=== PATIENT | female | born 2000 | race African-American/Black ===

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

== ENCOUNTER 2019-05-14 10:25 | Emergency (ER) | payer OTHER ==
[~2019-05-14] VITALS: Ht 144.8 cm; Wt 109.5 kg
[~2019-05-14 10:25] MED LIST changes: +LAMICTAL100 MG PO
[2019-05-14 11:11] LABS: URINE BILIRUBIN - DIPSTICK NEGATIVE (NEGATIVE); URINE BLOOD DIPSTICK TRACE-INTACT (NEGATIVE); URINE COLOR YELLOW; URINE GLUCOSE - DIPSTICK NEGATIVE (NEGATIVE); URINE KETONE NEGATIVE (NEGATIVE); URINE LEUK ESTERASE NEGATIVE (NEGATIVE); URINE NITRITE - DIPSTICK NEGATIVE (Negative); URINE PROTEIN - DIPSTICK NEGATIVE (NEG-TRACE); URINE UROBILINOGEN - DIPSTICK 0.2 E.U./dL (0.2)
[2019-05-14 11:34] LABS: HEMATOCRIT 37.9 % (37.0-47.0); HEMOGLOBIN 11.8 g/dl (12.0-16.0); IMMATURE GRANULOCYTES 0.3 % (0.0-5.0); MEAN CELL VOLUME 81.7 fL CALC (80.0-100.0); MEAN CORPUSCULAR HGB 25.4 pG CALC (26.0-32.0); MEAN CORPUSCULAR HGB CONC 31.1 g/L CALC (32.0-36.0); NEUT# 5.97 thou/uL (2.00-7.15); RED BLOOD COUNT 4.64 mill/uL (4.20-5.60); RED CELL DISTRI WIDTH 16.5 % (11.5-15.5)
[2019-05-14 12:00] LABS: ALBUMIN 4.1 g/dL (3.2-5.0); ALKALINE PHOSPHATASE 116 u/l (38-126); ANION GAP 14 (6-22 (CALC)); BILIRUBIN, TOTAL 0.4 mg/dL (0.0-1.4); BUN 14 mg/dL (7-17); BUN/CREATININE RATIO 22 (12-20 (CALC)); CARBON DIOXIDE 26 mmol/l (22-30); CHLORIDE 107 mmol/l (95-108); CREATININE 0.6 mg/dL (0.5-1.0); GFR > 60 ML/MIN (>=60 (CALC)); GFR FOR AFR.AMER. > 60 ML/MIN (>=60 (CALC)); POTASSIUM 4.2 mmol/l (3.5-5.1); SGOT/AST 21 u/l (14-36); SODIUM 143 mmol/l (137-146); TOTAL PROTEIN 7.7 g/dL (6.3-8.2)
[2019-05-14] MEDS ORDERED: AMOXICILLIN500 MG PO (12:20)
[2019-05-14 12:29] VITALS: BP 139/85
== END 2019-05-14 12:29 | disposition home or self-care (01) ==
LOC: ED 10:25
PROVIDERS: Emergency Medicine
DX: J02.0 Streptococcal pharyngitis (principal); E11.9 Type 2 diabetes mellitus without complications; R62.50 Unspecified lack of expected normal physiological development in childhood; R07.9 Chest pain, unspecified

== ENCOUNTER 2019-06-15 18:53 | Emergency (ER) | payer OTHER ==
[~2019-06-15] VITALS: Ht 144.8 cm; Wt 110.0 kg
[2019-06-15] MEDS ORDERED: RANITIDINE HCL150 MG PO (19:54)
[2019-06-15] MEDS ORDERED: BACITRACIN3.5 GM OS (20:16)
[2019-06-15 20:30] VITALS: BP 136/68
[2019-06-15] MEDS ORDERED: ERYTHROMYCIN O3.5 GM OS (20:44)
== END 2019-06-15 20:30 | disposition home or self-care (01) ==
LOC: ED 18:53
DX: H00.014 Hordeolum externum left upper eyelid (principal); E11.9 Type 2 diabetes mellitus without complications; R62.50 Unspecified lack of expected normal physiological development in childhood; Z79.84 Long term (current) use of oral hypoglycemic drugs

== ENCOUNTER 2019-08-17 09:02 | Emergency (ER) | payer OTHER ==
[~2019-08-17] VITALS: Ht 144.8 cm; Wt 135.0 kg
[~2019-08-17 09:02] MED LIST changes: +BACITRACIN3.5 GM OS; +ERYTHROMYCIN O3.5 GM OS; +RANITIDINE HCL150 MG PO
[2019-08-17 10:21] VITALS: BP 137/79
== END 2019-08-17 10:21 | disposition home or self-care (01) ==
LOC: ED 09:02
DX: S29.012A Strain of muscle and tendon of back wall of thorax, initial encounter (principal); R07.89 Other chest pain; X50.9XXA Other and unspecified overexertion or strenuous movements or postures, initial encounter; R62.50 Unspecified lack of expected normal physiological development in childhood; E11.9 Type 2 diabetes mellitus without complications; Z79.84 Long term (current) use of oral hypoglycemic drugs; Z79.899 Other long term (current) drug therapy; M25.512 Pain in left shoulder

== ENCOUNTER 2019-10-16 | Emergency (ER) | payer OTHER ==
[2019-10-16 18:34] LABS: HEMATOCRIT 39.4 % (37.0-47.0); HEMOGLOBIN 12.3 g/dl (12.0-16.0); IMMATURE GRANULOCYTES 0.3 % (0.0-5.0); MEAN CELL VOLUME 81.6 fL CALC (80.0-100.0); MEAN CORPUSCULAR HGB 25.5 pG CALC (26.0-32.0); MEAN CORPUSCULAR HGB CONC 31.2 g/L CALC (32.0-36.0); NEUT# 5.82 thou/uL (2.00-7.15); RED BLOOD COUNT 4.83 mill/uL (4.20-5.60); RED CELL DISTRI WIDTH 17.2 % (11.5-15.5)
[2019-10-16 18:37] LABS: URINE BILIRUBIN - DIPSTICK NEGATIVE (NEGATIVE); URINE BLOOD DIPSTICK NEGATIVE (NEGATIVE); URINE COLOR YELLOW; URINE GLUCOSE - DIPSTICK NEGATIVE (NEGATIVE); URINE KETONE NEGATIVE (NEGATIVE); URINE LEUK ESTERASE NEGATIVE (NEGATIVE); URINE NITRITE - DIPSTICK NEGATIVE (Negative); URINE PROTEIN - DIPSTICK NEGATIVE (NEG-TRACE); URINE SPECIFIC GRAVITY 1.015
[2019-10-16 18:46] LABS: ALBUMIN 4.2 g/dL (3.2-5.0); ALKALINE PHOSPHATASE 122 u/l (38-126); AMYLASE 74 u/l (30-110); ANION GAP 11 (6-22 (CALC)); BILIRUBIN, TOTAL 0.3 mg/dL (0.0-1.4); BUN 11 mg/dL (7-17); BUN/CREATININE RATIO 18 (12-20 (CALC)); CARBON DIOXIDE 28 mmol/l (22-30); CHLORIDE 104 mmol/l (95-108); CREATININE 0.6 mg/dL (0.5-1.0); GFR > 60 ML/MIN (>=60 (CALC)); GFR FOR AFR.AMER. > 60 ML/MIN (>=60 (CALC)); POTASSIUM 3.4 mmol/l (3.5-5.1); SGOT/AST 22 u/l (14-36); SODIUM 141 mmol/l (137-146); TOTAL PROTEIN 7.9 g/dL (6.3-8.2)
[2019-10-16] MEDS ORDERED: CEPHALEXIN500 M1 PO (18:54)
[2019-10-16] MEDS ORDERED: ONDANSETRON4 MG PO (18:54)
== END 2019-10-16 19:20 | disposition home or self-care (01) ==
PROVIDERS: Emergency Medicine
DX: B34.9 Viral infection, unspecified (principal); S00.421A Blister (nonthermal) of right ear, initial encounter; L08.9 Local infection of the skin and subcutaneous tissue, unspecified; E11.9 Type 2 diabetes mellitus without complications; R62.50 Unspecified lack of expected normal physiological development in childhood; X58.XXXA Exposure to other specified factors, initial encounter; Z79.84 Long term (current) use of oral hypoglycemic drugs

== ENCOUNTER 2020-08-11 10:56 | Emergency (ER) | payer OTHER ==
[~2020-08-11] VITALS: Ht 144.8 cm; Wt 105.6 kg
[~2020-08-11 10:56] MED LIST changes: +CEPHALEXIN500 M1 PO; +ONDANSETRON4 MG PO
[2020-08-11 11:44] LABS: URINE BILIRUBIN - DIPSTICK NEGATIVE (NEGATIVE); URINE BLOOD DIPSTICK TRACE-LYSED (NEGATIVE); URINE COLOR YELLOW; URINE GLUCOSE - DIPSTICK NEGATIVE (NEGATIVE); URINE KETONE NEGATIVE (NEGATIVE); URINE LEUK ESTERASE NEGATIVE (NEGATIVE); URINE NITRITE - DIPSTICK NEGATIVE (Negative); URINE PROTEIN - DIPSTICK NEGATIVE (NEG-TRACE); URINE SPECIFIC GRAVITY 1.015; URINE UROBILINOGEN - DIPSTICK 0.2 E.U./dL (0.2)
[2020-08-11 13:08] LABS: HEMATOCRIT 42.1 % (37.0-47.0); IMMATURE GRANULOCYTES 0.1 % (0.0-5.0); MEAN CELL VOLUME 82.2 fL CALC (80.0-100.0); MEAN CORPUSCULAR HGB 25.4 pG CALC (26.0-32.0); MEAN CORPUSCULAR HGB CONC 30.9 g/dL CAL (32.0-36.0); NEUT# 4.02 thou/uL (2.00-7.15); RED BLOOD COUNT 5.12 mill/uL (4.20-5.60); RED CELL DISTRI WIDTH 15.9 % (11.5-15.5)
[2020-08-11 13:22] LABS: ALBUMIN 4.2 g/dL (3.2-5.0); ANION GAP 11 (6-22 (CALC)); BILIRUBIN, TOTAL 0.3 mg/dL (0.0-1.4); BUN 13 mg/dL (7-17); BUN/CREATININE RATIO 17 (12-20 (CALC)); CARBON DIOXIDE 27 mmol/l (22-30); CHLORIDE 106 mmol/l (95-108); CREATININE 0.7 mg/dL (0.5-1.0); GFR > 60 ML/MIN (>=60 (CALC)); GFR FOR AFR.AMER. > 60 ML/MIN (>=60 (CALC)); LIPASE 94 u/l (23-300); POTASSIUM 3.9 mmol/l (3.5-5.1); SGOT/AST 21 u/l (14-36); SODIUM 141 mmol/l (137-146); TOTAL PROTEIN 7.9 g/dL (6.3-8.2)
[2020-08-11 13:27] LABS: ALKALINE PHOSPHATASE 136 u/l (38-126)
[2020-08-11 14:20] VITALS: BP 131/60
== END 2020-08-11 14:20 | disposition home or self-care (01) ==
LOC: ED 10:56
PROVIDERS: Family Medicine
DX: R10.13 Epigastric pain (principal); E11.9 Type 2 diabetes mellitus without complications; Z79.84 Long term (current) use of oral hypoglycemic drugs; R62.50 Unspecified lack of expected normal physiological development in childhood
CPT/HCPCS: Q9967

== ENCOUNTER 2020-09-28 18:52 | Emergency (ER) | payer OTHER ==
[~2020-09-28] VITALS: Ht 144.8 cm; Wt 108.0 kg
[2020-09-28 19:42] LABS: HEMOGLOBIN 12.3 g/dl (12.0-16.0); IMMATURE GRANULOCYTES 0.2 % (0.0-5.0); MEAN CELL VOLUME 82.6 fL CALC (80.0-100.0); MEAN CORPUSCULAR HGB 26.1 pG CALC (26.0-32.0); MEAN CORPUSCULAR HGB CONC 31.5 g/dL CAL (32.0-36.0); NEUT# 6.67 thou/uL (2.00-7.15); RED BLOOD COUNT 4.72 mill/uL (4.20-5.60); RED CELL DISTRI WIDTH 15.9 % (11.5-15.5)
[2020-09-28 20:17] VITALS: BP 141/89
== END 2020-09-28 20:17 | disposition home or self-care (01) ==
LOC: ED 18:52
PROVIDERS: Family Medicine
DX: B34.9 Viral infection, unspecified (principal); E11.9 Type 2 diabetes mellitus without complications; R62.50 Unspecified lack of expected normal physiological development in childhood; Z79.84 Long term (current) use of oral hypoglycemic drugs; Z20.828 Contact with and (suspected) exposure to other viral communicable diseases

== ENCOUNTER 2020-11-02 16:16 | Emergency (ER) | payer OTHER ==
[~2020-11-02] VITALS: Ht 144.8 cm; Wt 115.0 kg
[2020-11-02 18:28] LABS: URINE BILIRUBIN - DIPSTICK NEGATIVE (NEGATIVE); URINE BLOOD DIPSTICK NEGATIVE (NEGATIVE); URINE COLOR YELLOW; URINE GLUCOSE - DIPSTICK NEGATIVE (NEGATIVE); URINE KETONE TRACE mg/dL (NEGATIVE); URINE LEUK ESTERASE NEGATIVE (NEGATIVE); URINE NITRITE - DIPSTICK NEGATIVE (Negative); URINE PROTEIN - DIPSTICK NEGATIVE (NEG-TRACE); URINE SPECIFIC GRAVITY 1.025; URINE UROBILINOGEN - DIPSTICK 0.2 E.U./dL (0.2)
[2020-11-02 20:30] VITALS: BP 133/94
== END 2020-11-02 20:30 | disposition home or self-care (01) ==
LOC: ED 16:16
DX: B34.9 Viral infection, unspecified (principal); R51.9 Headache, unspecified; E11.9 Type 2 diabetes mellitus without complications; R62.50 Unspecified lack of expected normal physiological development in childhood; Z79.84 Long term (current) use of oral hypoglycemic drugs; Z20.822 Contact with and (suspected) exposure to COVID-19

== ENCOUNTER 2020-12-14 07:36 | Emergency (ER) | payer OTHER ==
[~2020-12-14] VITALS: Ht 144.8 cm; Wt 116.0 kg
[2020-12-14] MEDS ORDERED: CLARITIN10 M1 PO (08:47)
[2020-12-14] MEDS ORDERED: AMOXICILLIN500 MG PO (08:47)
[2020-12-14 08:54] VITALS: BP 139/93
== END 2020-12-14 08:58 | disposition home or self-care (01) ==
LOC: ED 07:36
DX: J02.9 Acute pharyngitis, unspecified (principal); E11.9 Type 2 diabetes mellitus without complications; R62.50 Unspecified lack of expected normal physiological development in childhood; Z79.84 Long term (current) use of oral hypoglycemic drugs; Z20.822 Contact with and (suspected) exposure to COVID-19

== ENCOUNTER 2021-01-26 20:13 | Emergency (ER) | payer OTHER ==
[~2021-01-26 20:13] MED LIST changes: +CLARITIN10 M1 PO
[2021-01-26 21:28] LABS: ALBUMIN 4.2 g/dL (3.2-5.0); ALKALINE PHOSPHATASE 109 u/l (38-126); ANION GAP 11 (6-22 (CALC)); BILIRUBIN, TOTAL 0.5 mg/dL (0.0-1.4); BUN 11 mg/dL (7-17); BUN/CREATININE RATIO 15 (12-20 (CALC)); CARBON DIOXIDE 28 mmol/l (22-30); CHLORIDE 103 mmol/l (95-108); CREATININE 0.7 mg/dL (0.5-1.0); GFR > 60 ML/MIN (>=60 (CALC)); GFR FOR AFR.AMER. > 60 ML/MIN (>=60 (CALC)); POTASSIUM 3.7 mmol/l (3.5-5.1); PROTHROMBIN TIME 10.4 SECONDS (9.0-12.5); SGOT/AST 24 u/l (14-36); SODIUM 139 mmol/l (137-146); TOTAL PROTEIN 7.7 g/dL (6.3-8.2)
[2021-01-26 21:32] LABS: HEMATOCRIT 38.7 % (37.0-47.0); HEMOGLOBIN 12.3 g/dl (12.0-16.0); IMMATURE GRANULOCYTES 0.3 % (0.0-5.0); MEAN CELL VOLUME 81.5 fL CALC (80.0-100.0); MEAN CORPUSCULAR HGB 25.9 pG CALC (26.0-32.0); MEAN CORPUSCULAR HGB CONC 31.8 g/dL CAL (32.0-36.0); NEUT# 6.2 thou/uL (2.00-7.15); RED BLOOD COUNT 4.75 mill/uL (4.20-5.60); RED CELL DISTRI WIDTH 15.4 % (11.5-15.5)
[2021-01-26] MEDS ORDERED: CODEINE/GUAIFEN1 SOL PO (23:29)
[2021-01-26 23:43] VITALS: BP 127/81
== END 2021-01-26 23:53 | disposition home or self-care (01) ==
LOC: ED 20:13
PROVIDERS: Emergency Medicine
DX: J40 Bronchitis, not specified as acute or chronic (principal); E11.9 Type 2 diabetes mellitus without complications; R62.50 Unspecified lack of expected normal physiological development in childhood; Z79.84 Long term (current) use of oral hypoglycemic drugs
CPT/HCPCS: Q9967

== ENCOUNTER 2021-03-06 16:16 | Emergency (ER) | payer OTHER ==
[~2021-03-06] VITALS: Ht 144.8 cm; Wt 111.8 kg
[~2021-03-06 16:16] MED LIST changes: +CODEINE/GUAIFEN1 SOL PO
[2021-03-06] MEDS ORDERED: AMOXICILLIN875 MG PO (16:32)
[2021-03-06 17:46] VITALS: BP 146/86
== END 2021-03-06 17:46 | disposition home or self-care (01) ==
LOC: ED 16:16
DX: H66.93 Otitis media, unspecified, bilateral (principal); E11.9 Type 2 diabetes mellitus without complications; I10 Essential (primary) hypertension; R62.50 Unspecified lack of expected normal physiological development in childhood; Z79.84 Long term (current) use of oral hypoglycemic drugs; Z20.822 Contact with and (suspected) exposure to COVID-19

== ENCOUNTER 2021-04-26 18:43 | Emergency (ER) | payer OTHER ==
[~2021-04-26] VITALS: Ht 144.8 cm; Wt 114.0 kg
[2021-04-26 21:09] VITALS: BP 149/95
== END 2021-04-26 21:21 | disposition home or self-care (01) ==
LOC: ED 18:43
DX: O26.891 Other specified pregnancy related conditions, first trimester (principal); R51.9 Headache, unspecified; O16.1 Unspecified maternal hypertension, first trimester; O24.911 Unspecified diabetes mellitus in pregnancy, first trimester; Z3A.08 8 weeks gestation of pregnancy; Z79.84 Long term (current) use of oral hypoglycemic drugs

== ENCOUNTER 2021-05-25 10:07 | Emergency (ER) | payer OTHER ==
[2021-05-25 13:24] VITALS: BP 115/63
== END 2021-05-25 13:24 | disposition home or self-care (01) ==
LOC: ED 10:07
DX: B34.9 Viral infection, unspecified (principal); I10 Essential (primary) hypertension; E11.9 Type 2 diabetes mellitus without complications; R62.50 Unspecified lack of expected normal physiological development in childhood; Z79.84 Long term (current) use of oral hypoglycemic drugs; Z20.822 Contact with and (suspected) exposure to COVID-19

== ENCOUNTER 2021-07-02 19:21 | Emergency (ER) | payer OTHER ==
[~2021-07-02] VITALS: Ht 144.8 cm; Wt 116.0 kg
[2021-07-02 20:19] LABS: HEMATOCRIT 39.1 % (37.0-47.0); HEMOGLOBIN 12.4 g/dl (12.0-16.0); IMMATURE GRANULOCYTES 0.1 % (0.0-5.0); MEAN CELL VOLUME 82.7 fL CALC (80.0-100.0); MEAN CORPUSCULAR HGB 26.2 pG CALC (26.0-32.0); MEAN CORPUSCULAR HGB CONC 31.7 g/dL CAL (32.0-36.0); NEUT# 6.46 thou/uL (2.00-7.15); RED BLOOD COUNT 4.73 mill/uL (4.20-5.60); RED CELL DISTRI WIDTH 15.9 % (11.5-15.5)
[2021-07-02 20:22] LABS: HCG SERUM/URINE (NEG/POS) NEGATIVE (NEGATIVE)
[2021-07-02 20:25] LABS: URINE BLOOD DIPSTICK NEGATIVE (NEGATIVE); URINE COLOR YELLOW; URINE GLUCOSE - DIPSTICK NEGATIVE (NEGATIVE); URINE KETONE 15 mg/dL (NEGATIVE); URINE PH 6.5 (4.5-8.0); URINE PROTEIN - DIPSTICK 30 mg/dL (NEG-TRACE); URINE SPECIFIC GRAVITY 1.025
[2021-07-02 20:28] LABS: URINE BILIRUBIN - DIPSTICK SMALL (NEGATIVE); URINE LEUK ESTERASE MODERATE (NEGATIVE); URINE NITRITE - DIPSTICK NEGATIVE (Negative)
[2021-07-02 20:37] LABS: URINE SQUAMOUS EPITHELIAL CELL FEW EPI/hpf (0-FEW)
[2021-07-02 20:41] LABS: ALBUMIN 4.2 g/dL (3.2-5.0); ALKALINE PHOSPHATASE 78 u/l (38-126); AMYLASE 104 u/l (30-110); ANION GAP 9 (6-22 (CALC)); BILIRUBIN, TOTAL 0.5 mg/dL (0.0-1.4); BUN 16 mg/dL (7-17); BUN/CREATININE RATIO 17 (12-20 (CALC)); CARBON DIOXIDE 30 mmol/l (22-30); CHLORIDE 104 mmol/l (95-108); CREATININE 0.9 mg/dL (0.5-1.0); ETHYL ALCOHOL 0 mg/dl (0-30); GFR > 60 ML/MIN (>=60 (CALC)); GFR FOR AFR.AMER. > 60 ML/MIN (>=60 (CALC)); LIPASE 110 u/l (23-300); POTASSIUM 3.6 mmol/l (3.5-5.1); SGOT/AST 27 u/l (14-36); SODIUM 139 mmol/l (137-146); TOTAL PROTEIN 7.9 g/dL (6.3-8.2)
[2021-07-02] MEDS ORDERED: CLONIDINE0.1 MG PO (21:09)
[2021-07-02] MEDS ORDERED: LAMICTAL25 M2 PO (21:10)
[2021-07-02 23:28] VITALS: BP 124/70
[2021-07-02] MEDS ORDERED: ZOFRAN4 MG/TAB PO (23:49)
[2021-07-02] MEDS ORDERED: PROTONIX40 MG PO (23:49)
[2021-07-02] MEDS ORDERED: BACTRIM DS1 TAB PO (23:49)
== END 2021-07-03 | disposition home or self-care (01) ==
LOC: ED 19:21
DX: R10.13 Epigastric pain (principal); R11.0 Nausea; N39.0 Urinary tract infection, site not specified; E11.9 Type 2 diabetes mellitus without complications; I10 Essential (primary) hypertension; R62.50 Unspecified lack of expected normal physiological development in childhood; Z79.84 Long term (current) use of oral hypoglycemic drugs; Z20.822 Contact with and (suspected) exposure to COVID-19

== ENCOUNTER 2021-07-21 19:37 | Emergency (ER) | payer OTHER ==
[~2021-07-21] VITALS: Ht 144.8 cm; Wt 116.0 kg
[~2021-07-21 19:37] MED LIST changes: +CLONIDINE0.1 MG PO; +LAMICTAL25 M2 PO; +PROTONIX40 MG PO
[2021-07-21 20:02] LABS: HEMOGLOBIN 12.3 g/dl (12.0-16.0); IMMATURE GRANULOCYTES 0.1 % (0.0-5.0); MEAN CORPUSCULAR HGB 26.2 pG CALC (26.0-32.0); MEAN CORPUSCULAR HGB CONC 31.5 g/dL CAL (32.0-36.0); NEUT# 4.13 thou/uL (2.00-7.15); RED BLOOD COUNT 4.7 mill/uL (4.20-5.60); RED CELL DISTRI WIDTH 16.7 % (11.5-15.5)
[2021-07-21 20:05] LABS: URINE BILIRUBIN - DIPSTICK NEGATIVE (NEGATIVE); URINE BLOOD DIPSTICK TRACE-INTACT (NEGATIVE); URINE COLOR YELLOW; URINE GLUCOSE - DIPSTICK NEGATIVE (NEGATIVE); URINE KETONE TRACE mg/dL (NEGATIVE); URINE PH 6.5 (4.5-8.0); URINE PROTEIN - DIPSTICK NEGATIVE (NEG-TRACE); URINE SPECIFIC GRAVITY 1.025; URINE UROBILINOGEN - DIPSTICK 0.2 E.U./dL (0.2)
[2021-07-21 20:06] LABS: URINE LEUK ESTERASE SMALL (NEGATIVE); URINE NITRITE - DIPSTICK NEGATIVE (Negative)
[2021-07-21 20:13] LABS: ALKALINE PHOSPHATASE 66 u/l (38-126); AMYLASE 78 u/l (30-110); BILIRUBIN, TOTAL 0.7 mg/dL (0.0-1.4); BUN 12 mg/dL (7-17); BUN/CREATININE RATIO 16 (12-20 (CALC)); CARBON DIOXIDE 25 mmol/l (22-30); CHLORIDE 107 mmol/l (95-108); CREATININE 0.8 mg/dL (0.5-1.0); GFR > 60 ML/MIN (>=60 (CALC)); GFR FOR AFR.AMER. > 60 ML/MIN (>=60 (CALC)); LIPASE 113 u/l (23-300); SGOT/AST 33 u/l (14-36); SODIUM 140 mmol/l (137-146); TOTAL PROTEIN 7.7 g/dL (6.3-8.2)
[2021-07-21 20:14] LABS: ANION GAP 12 (6-22 (CALC)); POTASSIUM 4.4 mmol/l (3.5-5.1)
[2021-07-21 20:18] LABS: URINE BACTERIA FEW hpf; URINE SQUAMOUS EPITHELIAL CELL MANY EPI/hpf (0-FEW)
[2021-07-21] MEDS ORDERED: PROMETHAZINE HY25 M1 PO (22:11)
[2021-07-21 22:23] VITALS: BP 135/84
== END 2021-07-21 22:25 | disposition home or self-care (01) ==
LOC: ED 19:37
PROVIDERS: Family Medicine
DX: A08.4 Viral intestinal infection, unspecified (principal); I10 Essential (primary) hypertension; E11.9 Type 2 diabetes mellitus without complications; R62.50 Unspecified lack of expected normal physiological development in childhood; Z20.822 Contact with and (suspected) exposure to COVID-19
CPT/HCPCS: Q9967

== ENCOUNTER 2021-08-10 11:56 | Observation (INO) | payer OTHER ==
[~2021-08-10] VITALS: Ht 144.8 cm; Wt 107.0 kg
[~2021-08-10 11:56] MED LIST changes: +PROMETHAZINE HY25 M1 PO
--- NOTE | 2021-08-10 11:56 | NUR ---
PT TO ED ROOM 13 VIA EMS STRETCHER IN STABLE CONDITION.
--- NOTE | 2021-08-10 12:12 | NUR ---
PT BACK TO ROOM FROM BATHROOM, UNABLE TO VOID AT THIS TIME, BUT STATES SHE FEELS LIKE SHE NEEDS TO. PT REPORT LAST VOID LAST NIGHT.
[2021-08-10 12:37] LABS: HEMATOCRIT 37.5 % (37.0-47.0); HEMOGLOBIN 11.8 g/dl (12.0-16.0); MEAN CELL VOLUME 84.7 fL CALC (80.0-100.0); MEAN CORPUSCULAR HGB 26.6 pG CALC (26.0-32.0); MEAN CORPUSCULAR HGB CONC 31.5 g/dL CAL (32.0-36.0); NEUT# 2.39 thou/uL (2.00-7.15); RED BLOOD COUNT 4.43 mill/uL (4.20-5.60); RED CELL DISTRI WIDTH 16.8 % (11.5-15.5)
--- NOTE | 2021-08-10 13:33 | NUR ---
PT TO ED BATHROOM AMBULATORY TO PROVIDE URINE SAMPLE. COLLECTED AND TO LAB.
[2021-08-10 13:36] LABS: ALBUMIN 3.9 g/dL (3.2-5.0); ALKALINE PHOSPHATASE 87 u/l (38-126); AMYLASE 68 u/l (30-110); ANION GAP 11 (6-22 (CALC)); BILIRUBIN, TOTAL 0.6 mg/dL (0.0-1.4); BUN 9 mg/dL (7-17); BUN/CREATININE RATIO 11 (12-20 (CALC)); CARBON DIOXIDE 27 mmol/l (22-30); CHLORIDE 105 mmol/l (95-108); CREATININE 0.8 mg/dL (0.5-1.0); GFR > 60 ML/MIN (>=60 (CALC)); GFR FOR AFR.AMER. > 60 ML/MIN (>=60 (CALC)); LIPASE 76 u/l (23-300); POTASSIUM 3.9 mmol/l (3.5-5.1); SGOT/AST 24 u/l (14-36); SODIUM 139 mmol/l (137-146); TOTAL PROTEIN 7.2 g/dL (6.3-8.2)
--- NOTE | 2021-08-10 14:33 | NUR ---
PT RESTING ON ED BED. CALL LIGHT IN REACH, PT STABLE. WILL CONTINUE TO MONITOR.
[2021-08-10 14:46] LABS: URINE BILIRUBIN - DIPSTICK NEGATIVE (NEGATIVE); URINE BLOOD DIPSTICK NEGATIVE (NEGATIVE); URINE COLOR YELLOW; URINE GLUCOSE - DIPSTICK NEGATIVE (NEGATIVE); URINE KETONE NEGATIVE (NEGATIVE); URINE PROTEIN - DIPSTICK NEGATIVE (NEG-TRACE); URINE SPECIFIC GRAVITY 1.015; URINE UROBILINOGEN - DIPSTICK 0.2 E.U./dL (0.2)
[2021-08-10 14:49] LABS: URINE LEUK ESTERASE SMALL (NEGATIVE); URINE NITRITE - DIPSTICK NEGATIVE (Negative)
[2021-08-10 14:59] LABS: URINE WBC 0-2 WBC/hpf (0-5)
[2021-08-10 15:00] LABS: URINE SQUAMOUS EPITHELIAL CELL FEW EPI/hpf (0-FEW)
--- NOTE | 2021-08-10 15:08 | NUR ---
PT UPDATED ON POC, AMBULATED TO ED BATHROOM WITH STEADY GAIT.PT STABLE.
--- NOTE | 2021-08-10 15:28 | NUR ---
spoke with clive from the or states pt is schedule for surgery sat 10am. Relates NPO after midnight.
--- NOTE | 2021-08-10 16:20 | NUR ---
PT RESTING COMFORTABLY, NO NEEDS AT THIS TIME
--- NOTE | 2021-08-10 17:18 | NUR ---
PT AMBULATED TO ED BATHROOM WITH STEADY GAIT. PT STABLE.
--- NOTE | 2021-08-10 18:15 | NUR ---
PT RESTING ON ED BED, TALKING ON PHONE. PT STABLE.
--- NOTE | 2021-08-10 18:45 | NUR ---
PT REPORTS PAIN COMES AND GOES AND RATES AT 7/10. PT AWARE OF ADMISSION AND GOING TO MED\SURG SOON. PT STABLE.
--- NOTE | 2021-08-10 18:48 | NUR ---
CALL PLACED TO MED/SURG TO GIVE REPORT, UNABLE TO TAKE REPORT AT THIS TIME. RN WILL CALL BACK WHEN AVAILABLE.
--- NOTE | 2021-08-10 19:01 | NUR ---
SBAR REPORT GIVEN TO BELLE, PT TO GO TO ROOM 263, WILL BRING TO FLOOR IN ABOUT AN HOUR.
--- NOTE | 2021-08-10 19:34 | NUR ---
PT AMBULATED TO ED BATHROOM WITH STEADY GAIT. PT STATES PAIN "COMES AND GOES". PT'S VSS. PT AWARE OF TIME OF TRANSFER TO MED/SURG. PT STABLE.
--- NOTE | 2021-08-10 19:58 | NUR ---
CALL PLACED TO MED/SURG. OK TO BRING PT. PT TAKEN BY ED DEON IN STABLE CONDITION. ALL BELONGINGS AND PAPERWORK TAKEN.
[2021-08-10 20:04] VITALS: BP 155/104
--- NOTE | 2021-08-10 20:04 | NUR ---
PT ARRIVED TO [facility] VIA STRETCHER ACCOMPANIED BY ER NURSE. ORIENTED PT TO ROOM AND CALL LIGHT, VERBALIZED UNDERSTANDING. PT BROUGHT IN MEDS FROM HOME, DISCUSSED SENDING MEDS TO PHARMACY, PT AGREES. MEDS SEALED IN BAG IN FRONT OF PT, BAG NUMBER [id number]. DISCUSSED POC AND PROVIDED PT WITH PRE AND POST OP EDUCATIONS AND EXPECTATIONS. INFORMED CONSENT OBTAINED. DISCUSSED DIET, SKIN INTACT, ADMISSION ASSESSMENT COMPLETED. CALL LIGHT IN REACH,CONTINUE TO MONITOR.
[2021-08-11] VITALS (11 sets, daily range): BP systolic 108–142; BP diastolic 66–89
--- NOTE | 2021-08-11 | NUR ---
PT RETURNED FROM BATHROOM STATES SHE HAD A LOOSE STOOL, PT STATES PAIN DOWN TO A 6/10 AFTER TORADOL, "STARTING TO FEEL BETTER". PT MADE NPO, VERBALIZED UNDERSTANDING. CALL LIGHT IN REACH,CONTINUE TO MONITOR.
--- NOTE | 2021-08-11 04:36 | NUR ---
PT RESTING IN BED WITH EYES CLOSED, NO SIGNS OF DISTRESS NOTED, RESP EVEN AND UNLABORED. CALL LIGHT IN REACH,CONTINUE TO MONITOR.
--- NOTE | 2021-08-11 07:19 | NUR ---
ASSESSMENT DONE. PATIENT IS ALERT AND ORIENT X3. RESPS EVEN AND UNLABORED. PATIENT IS ANXIOUS ABOUT SURGERY ASKING QUESTIONS. DISCUSS POC WITH PATIENT . PATIENT VERBALIZED UNDERSTANDING. PATIENT STATED PAIN IN ABD 9/10. MEDICATED PATIENT WITH DILAUDID. PATIENT DENIES ANY OTHER NEEDS AT THIS TIME. CALL LIGHT IN REACH.
--- NOTE | 2021-08-11 09:18 | NUR ---
PATIENT WENT TO OR VIA STRETCHER BY DARREL OSULLIVAN.
[2021-08-11] MEDS ORDERED: PERCOCET 5/321 COMBO PO (10:22)
--- NOTE | 2021-08-11 11:55 | NUR ---
PATIENT CAME FROM OR VIA STRETCHER. REPORT RECEIVED FROM DARREL OSULLIVAN. PATIENT HAS X4 INCISIONS IN ABD CDI. O2 AT 2L VIA NC. SCD IN PLACE. ICE CHIPS PROVIDED. SAFETY PRECAUTIONS REINFORCES AND CALL LIGHT IN REACH.
--- NOTE | 2021-08-11 14:35 | NUR ---
PATIENT HAS MILD BLEEDING ON THE UMBILICAL INCISIONS AND SMALL DRESSING APPLIED. ICE CHIPS, WATER AND JELLO PROVIDED. PATIENT DENIES ANY OTHER NEEDS AT THIS TIME. CALL LIGHT IN REACH.
--- NOTE | 2021-08-11 15:15 | NUR ---
PATIENT USING THE BEDSIDE AND VOIDED. PATIENT STATED SHE HAS CHEST PAIN PRESSURE AND POINTS TO THE EPIGASTRIC REGION. TOLD PATIENT SHE NEEDS WALK. PATIENT REFUSED. PATIENT STATED SHE WOULD SIT IN RECLINER. ASSISTED PATIENT TO SIT IN THE RECLINER. PATIENT STATED SHE ALSO HAS PAIN IN ABD 9/10. MEDICATED PATIENT WITH OXYCODONE. PATIENT DENIES ANY OTHER NEEDS AT THIS TIME. CALL LIGHT IN REACH.
--- NOTE | 2021-08-11 16:17 | NUR ---
PATIENT IS RESTING IN RECLINER WITH NO DISTRESS NOTED. PATIENT STATED SHE FEELS BETTER NOW. CALL LIGHT IN REACH.
--- NOTE | 2021-08-11 20:00 | NUR ---
PHYSICAL ASSESMENT COMPLETE. PT HAS COMPLAINTS OF PAIN AND NAUSEA AND GENERAL DISCOMFORT. SCHEDULED MEDICATIONS AND PRN MEDICATION ADMINISTERED, SEE E-MAR. PT DENIES ANY NEEDS AT THIS TIME. PLAN OF CARE REVIEWED, PT DENIES QUESTIONS, VERBALIZES UNDERSTANDING. ITEMS WITHIN REACH, BED LOCKED IN LOW POSITION W/ BEDRAILS UP X2. CALL HE WITHIN REACH, AGREES TO CALL PRN.
--- NOTE | 2021-08-11 23:54 | NUR ---
PT LAYING IN BED WITH EYES CLOSED, APPEARS TO BE SLEEPING, APPEARS COMFORTABLE AND IN NO DISTRESS. RESPIRATIONS REGULAR AND UNLABORED. ITEMS REMAIN WITHIN REACH, CALL HE REMAINS WITHIN REACH. BED REMAINS LOCKED AND IN LOW POSITION WITH BEDRAILS UP X2. WILL CONTINUE TO MONITOR.
[2021-08-12] VITALS: BP 125/76
[2021-08-12 04:00] VITALS: BP 120/77
--- NOTE | 2021-08-12 04:01 | NUR ---
PT RESTING IN BED, NO SIGNS OF DISTRESS NOTED, RESP EVEN AND UNLABORED. PT VOICES NO NEEDS OR COMPLAINTS AT THIS TIME. REAPPLIED DRESSING TO SURGICAL WOUND LEFT OF UMBILICUS. CALL LIGHT IN REACH, CONTINUE TO MONITOR.
[2021-08-12 07:51] VITALS: BP 120/80
--- NOTE | 2021-08-12 08:30 | NUR ---
ASSESSMENT DONE. PATIENT IS ALERT AND ORIENT X3. RESPS EVEN AND UNLABORED. PATIENT VOID IN THE BSC. THEN STAND BY ASSIST PATIENT TO AMBULATE IN THE HALLWAY. PATIENT AMBULATED WITH A SLOW AND STEADY BUT ONLY AMBULATED HALF OF THE HALLWAY. THEN SAT IN THE RECLINER. PATIENT STATED PAIN IN ABD 8/10. MEDICATED PATIENT WITH OXYCODONE. PATIENT STATED SHE WAS ABLE TO EAT HER BREAKFAST AND DID NOT HAVE NAUSEA. X4 INCISIONS IN ABD. CHANGE PATIENT UMBILICUS DRESSING HAD MILD OLD BLOODY DRAINGE NOTED. PATIENT STATED HER DAD WILL PICK HER UP TO GO HOME AFTER 9AM. PATIENT DENIES ANY OTHER NEEDS AT THIS TIME. CALL LIGHT IN REACH.
--- NOTE | 2021-08-12 11:09 | NUR ---
PATIENT IS SITTING IN RECLINER WITH NO DISTRESS NOTED. PATIENT STATED SHE IS TIRED AND DENIES NEEDS. PATIENT STATED SHE IS WAITNG FOR HER DAD COME. CALL LIGHT IN REACH.
--- NOTE | 2021-08-12 11:32 | NUR ---
Discharge instructions given. Patient verbalizes understanding of same. Discharged in stable condition via Wheelchair to Home with staff. All belongings sent with pt AND HOME MEDICATION BAG GIVEN.
== END 2021-08-12 11:32 | disposition home or self-care (01) ==
LOC: ED 11:56 → ED-I 15:14 → ED 15:26 → MS2 15:27
PROVIDERS: ADMIT Surgery; ATTEND Surgery
DX: K80.12 Calculus of gallbladder with acute and chronic cholecystitis without obstruction (principal); I10 Essential (primary) hypertension; E11.9 Type 2 diabetes mellitus without complications; R62.50 Unspecified lack of expected normal physiological development in childhood; Z20.822 Contact with and (suspected) exposure to COVID-19
CPT/HCPCS: G0378; J0131; J2710; Q9967

== ENCOUNTER 2021-08-22 14:08 | Emergency (ER) | payer OTHER ==
[~2021-08-22] VITALS: Ht 144.8 cm; Wt 105.0 kg
[~2021-08-22 14:08] MED LIST changes: +PERCOCET 5/321 COMBO PO
[2021-08-22 14:43] LABS: HEMATOCRIT 35.8 % (37.0-47.0); HEMOGLOBIN 11.5 g/dl (12.0-16.0); IMMATURE GRANULOCYTES 0.4 % (0.0-5.0); MEAN CELL VOLUME 83.6 fL CALC (80.0-100.0); MEAN CORPUSCULAR HGB 26.9 pG CALC (26.0-32.0); MEAN CORPUSCULAR HGB CONC 32.1 g/dL CAL (32.0-36.0); NEUT# 4.15 thou/uL (2.00-7.15); RED BLOOD COUNT 4.28 mill/uL (4.20-5.60); RED CELL DISTRI WIDTH 16.5 % (11.5-15.5)
[2021-08-22 15:01] LABS: ALKALINE PHOSPHATASE 128 u/l (38-126); ANION GAP 10 (6-22 (CALC)); BILIRUBIN, TOTAL 0.4 mg/dL (0.0-1.4); BUN 16 mg/dL (7-17); BUN/CREATININE RATIO 23 (12-20 (CALC)); CARBON DIOXIDE 29 mmol/l (22-30); CHLORIDE 106 mmol/l (95-108); CREATININE 0.7 mg/dL (0.5-1.0); GFR > 60 ML/MIN (>=60 (CALC)); GFR FOR AFR.AMER. > 60 ML/MIN (>=60 (CALC)); LIPASE 156 u/l (23-300); POTASSIUM 3.4 mmol/l (3.5-5.1); SGOT/AST 23 u/l (14-36); SODIUM 142 mmol/l (137-146); TOTAL PROTEIN 7.6 g/dL (6.3-8.2)
[2021-08-22 16:00] VITALS: BP 133/72
[2021-08-22 16:54] LABS: URINE BILIRUBIN - DIPSTICK NEGATIVE (NEGATIVE); URINE BLOOD DIPSTICK NEGATIVE (NEGATIVE); URINE COLOR YELLOW; URINE GLUCOSE - DIPSTICK NEGATIVE (NEGATIVE); URINE KETONE 15 mg/dL (NEGATIVE); URINE LEUK ESTERASE NEGATIVE (NEGATIVE); URINE PROTEIN - DIPSTICK NEGATIVE (NEG-TRACE); URINE SPECIFIC GRAVITY 1.025; URINE UROBILINOGEN - DIPSTICK 0.2 E.U./dL (0.2)
[2021-08-22 16:56] LABS: URINE NITRITE - DIPSTICK NEGATIVE (Negative)
== END 2021-08-22 19:20 | disposition home or self-care (01) ==
LOC: ED 14:08
PROVIDERS: Family Medicine
DX: R42 Dizziness and giddiness (principal); I10 Essential (primary) hypertension; E11.9 Type 2 diabetes mellitus without complications; E66.9 Obesity, unspecified; Z68.43 Body mass index [BMI] 50.0-59.9, adult; Z90.49 Acquired absence of other specified parts of digestive tract; R62.50 Unspecified lack of expected normal physiological development in childhood

== ENCOUNTER 2021-09-08 10:34 | Emergency (ER) | payer OTHER ==
[~2021-09-08] VITALS: Ht 144.8 cm; Wt 105.0 kg
[2021-09-08] MEDS ORDERED: LAMICTAL25 M2 PO (11:01)
[2021-09-08] MEDS ORDERED: CLONIDINE0.1 MG PO (11:02)
[2021-09-08] MEDS ORDERED: METFORMIN500 M2 PO (11:02)
[2021-09-08] MEDS ORDERED: B-12100 MCG PO (11:15)
[2021-09-08] MEDS ORDERED: MOTRIN200 MG PO (11:16)
[2021-09-08 11:48] LABS: HEMATOCRIT 38.3 % (37.0-47.0); HEMOGLOBIN 12.1 g/dl (12.0-16.0); IMMATURE GRANULOCYTES 0.7 % (0.0-5.0); MEAN CELL VOLUME 83.4 fL CALC (80.0-100.0); MEAN CORPUSCULAR HGB 26.4 pG CALC (26.0-32.0); MEAN CORPUSCULAR HGB CONC 31.6 g/dL CAL (32.0-36.0); NEUT# 4.15 thou/uL (2.00-7.15); RED BLOOD COUNT 4.59 mill/uL (4.20-5.60); RED CELL DISTRI WIDTH 16.4 % (11.5-15.5)
[2021-09-08 12:12] LABS: ALBUMIN 3.9 g/dL (3.2-5.0); ALKALINE PHOSPHATASE 108 u/l (38-126); ANION GAP 9 (6-22 (CALC)); BILIRUBIN, TOTAL 0.5 mg/dL (0.0-1.4); BUN 11 mg/dL (7-17); BUN/CREATININE RATIO 14 (12-20 (CALC)); CARBON DIOXIDE 32 mmol/l (22-30); CHLORIDE 105 mmol/l (95-108); CREATININE 0.8 mg/dL (0.5-1.0); GFR > 60 ML/MIN (>=60 (CALC)); GFR FOR AFR.AMER. > 60 ML/MIN (>=60 (CALC)); POTASSIUM 3.5 mmol/l (3.5-5.1); SGOT/AST 25 u/l (14-36); SODIUM 142 mmol/l (137-146)
[2021-09-08] MEDS ORDERED: IMITREX50 MG PO (13:40)
[2021-09-08 14:06] VITALS: BP 138/42
== END 2021-09-08 14:06 | disposition home or self-care (01) ==
LOC: ED 10:34
PROVIDERS: Family Medicine
DX: R51.9 Headache, unspecified (principal); I10 Essential (primary) hypertension; E11.9 Type 2 diabetes mellitus without complications; E66.9 Obesity, unspecified; R62.50 Unspecified lack of expected normal physiological development in childhood; Z79.84 Long term (current) use of oral hypoglycemic drugs

== ENCOUNTER 2021-10-24 16:29 | Emergency (ER) | payer OTHER ==
[~2021-10-24] VITALS: Ht 144.8 cm; Wt 120.9 kg
[~2021-10-24 16:29] MED LIST changes: +B-12100 MCG PO; +IMITREX50 MG PO; +MOTRIN200 MG PO
[2021-10-24 18:24] LABS: HEMATOCRIT 37.1 % (37.0-47.0); HEMOGLOBIN 11.6 g/dl (12.0-16.0); MEAN CELL VOLUME 84.3 fL CALC (80.0-100.0); MEAN CORPUSCULAR HGB 26.4 pG CALC (26.0-32.0); MEAN CORPUSCULAR HGB CONC 31.3 g/dL CAL (32.0-36.0); NEUT# 3.69 thou/uL (2.00-7.15); RED BLOOD COUNT 4.4 mill/uL (4.20-5.60); RED CELL DISTRI WIDTH 15.2 % (11.5-15.5)
[2021-10-24 18:37] LABS: ALBUMIN 3.8 g/dL (3.2-5.0); ALKALINE PHOSPHATASE 116 u/l (38-126); AMYLASE 91 u/l (30-110); ANION GAP 10 (6-22 (CALC)); BILIRUBIN, TOTAL 0.4 mg/dL (0.0-1.4); BUN 12 mg/dL (7-17); BUN/CREATININE RATIO 14 (12-20 (CALC)); CARBON DIOXIDE 30 mmol/l (22-30); CHLORIDE 105 mmol/l (95-108); CREATININE 0.8 mg/dL (0.5-1.0); GFR > 60 ML/MIN (>=60 (CALC)); GFR FOR AFR.AMER. > 60 ML/MIN (>=60 (CALC)); LIPASE 86 u/l (23-300); POTASSIUM 3.4 mmol/l (3.5-5.1); SGOT/AST 20 u/l (14-36); SODIUM 141 mmol/l (137-146); TOTAL PROTEIN 7.8 g/dL (6.3-8.2)
[2021-10-24] MEDS ORDERED: ESCITALOPRAM OX10 MG PO (18:43)
[2021-10-24] MEDS ORDERED: MECLIZINE25 MG PO (18:44)
[2021-10-24] MEDS ORDERED: METOPROL TAR25 MG PO (18:44)
[2021-10-24] MEDS ORDERED: SUCRALFATE1 GM PO (18:45)
[2021-10-24] MEDS ORDERED: VITAMIN D2400 UNIT PO (18:46)
[2021-10-24 18:48] LABS: MYOGLOBIN 17 ng/mL (0 - 62)
[2021-10-24 20:31] VITALS: BP 140/93
== END 2021-10-24 20:31 | disposition home or self-care (01) ==
LOC: ED 16:29
PROVIDERS: Emergency Medicine
DX: R07.89 Other chest pain (principal); R10.11 Right upper quadrant pain; I10 Essential (primary) hypertension; E11.9 Type 2 diabetes mellitus without complications; R62.50 Unspecified lack of expected normal physiological development in childhood; Z79.84 Long term (current) use of oral hypoglycemic drugs; Z90.49 Acquired absence of other specified parts of digestive tract
CPT/HCPCS: Q9967

== ENCOUNTER 2021-11-11 14:02 | Emergency (ER) | payer OTHER ==
[~2021-11-11] VITALS: Ht 144.8 cm; Wt 105.0 kg
[~2021-11-11 14:02] MED LIST changes: +ESCITALOPRAM OX10 MG PO; +MECLIZINE25 MG PO; +METOPROL TAR25 MG PO; +SUCRALFATE1 GM PO; +VITAMIN D2400 UNIT PO
[2021-11-11 14:34] LABS: HEMATOCRIT 40.1 % (37.0-47.0); HEMOGLOBIN 12.4 g/dl (12.0-16.0); IMMATURE GRANULOCYTES 0.1 % (0.0-5.0); MEAN CORPUSCULAR HGB 26.3 pG CALC (26.0-32.0); MEAN CORPUSCULAR HGB CONC 30.9 g/dL CAL (32.0-36.0); NEUT# 4.62 thou/uL (2.00-7.15); RED BLOOD COUNT 4.72 mill/uL (4.20-5.60); RED CELL DISTRI WIDTH 15.6 % (11.5-15.5)
[2021-11-11 14:52] LABS: ALBUMIN 4.1 g/dL (3.2-5.0); ALKALINE PHOSPHATASE 139 u/l (38-126); ANION GAP 11 (6-22 (CALC)); BUN 14 mg/dL (7-17); BUN/CREATININE RATIO 17 (12-20 (CALC)); CARBON DIOXIDE 29 mmol/l (22-30); CHLORIDE 105 mmol/l (95-108); CREATININE 0.8 mg/dL (0.5-1.0); GFR > 60 ML/MIN (>=60 (CALC)); GFR FOR AFR.AMER. > 60 ML/MIN (>=60 (CALC)); POTASSIUM 4.1 mmol/l (3.5-5.1); SGOT/AST 26 u/l (14-36); SODIUM 140 mmol/l (137-146); TOTAL PROTEIN 8.1 g/dL (6.3-8.2)
[2021-11-11 15:06] LABS: BILIRUBIN, TOTAL 0.2 mg/dL (0.0-1.4)
[2021-11-11] MEDS ORDERED: ZPAK PO (17:04)
[2021-11-11 18:13] VITALS: BP 147/92
== END 2021-11-11 18:18 | disposition home or self-care (01) ==
LOC: ED 14:02
PROVIDERS: Family Medicine
DX: J06.9 Acute upper respiratory infection, unspecified (principal); I10 Essential (primary) hypertension; E11.9 Type 2 diabetes mellitus without complications; R62.50 Unspecified lack of expected normal physiological development in childhood; Z79.84 Long term (current) use of oral hypoglycemic drugs; Z20.822 Contact with and (suspected) exposure to COVID-19

== ENCOUNTER 2021-11-27 16:27 | Emergency (ER) | payer OTHER ==
[2021-11-27] VITALS (15 sets, daily range): BP systolic 121–145; BP diastolic 79–102
[~2021-11-27] VITALS: Ht 144.8 cm; Wt 105.0 kg
[~2021-11-27 16:27] MED LIST changes: +ZPAK PO
[2021-11-27 17:07] LABS: HEMATOCRIT 39.1 % (37.0-47.0); HEMOGLOBIN 12.4 g/dl (12.0-16.0); IMMATURE GRANULOCYTES 0.1 % (0.0-5.0); MEAN CELL VOLUME 83.7 fL CALC (80.0-100.0); MEAN CORPUSCULAR HGB 26.6 pG CALC (26.0-32.0); MEAN CORPUSCULAR HGB CONC 31.7 g/dL CAL (32.0-36.0); NEUT# 5.44 thou/uL (2.00-7.15); RED BLOOD COUNT 4.67 mill/uL (4.20-5.60); RED CELL DISTRI WIDTH 15.6 % (11.5-15.5)
[2021-11-27 17:24] LABS: ALKALINE PHOSPHATASE 110 u/l (38-126); ANION GAP 13 (6-22 (CALC)); BILIRUBIN, TOTAL 0.2 mg/dL (0.0-1.4); BUN 15 mg/dL (7-17); BUN/CREATININE RATIO 18 (12-20 (CALC)); CARBON DIOXIDE 28 mmol/l (22-30); CHLORIDE 105 mmol/l (95-108); CREATININE 0.8 mg/dL (0.5-1.0); GFR > 60 ML/MIN (>=60 (CALC)); GFR FOR AFR.AMER. > 60 ML/MIN (>=60 (CALC)); POTASSIUM 4.2 mmol/l (3.5-5.1); SGOT/AST 31 u/l (14-36); SODIUM 142 mmol/l (137-146); TOTAL PROTEIN 8.2 g/dL (6.3-8.2)
[2021-11-27 17:35] LABS: MYOGLOBIN 34 ng/mL (0 - 62)
[2021-11-27 18:58] LABS: URINE BILIRUBIN - DIPSTICK NEGATIVE (NEGATIVE); URINE BLOOD DIPSTICK NEGATIVE (NEGATIVE); URINE COLOR YELLOW; URINE GLUCOSE - DIPSTICK NEGATIVE (NEGATIVE); URINE KETONE NEGATIVE (NEGATIVE); URINE LEUK ESTERASE NEGATIVE (NEGATIVE); URINE PROTEIN - DIPSTICK NEGATIVE (NEG-TRACE); URINE SPECIFIC GRAVITY 1.025; URINE UROBILINOGEN - DIPSTICK 0.2 E.U./dL (0.2)
[2021-11-27 18:59] LABS: URINE NITRITE - DIPSTICK NEGATIVE (Negative)
== END 2021-11-27 20:35 | disposition home or self-care (01) ==
LOC: ED 16:27
PROVIDERS: Emergency Medicine
DX: F41.9 Anxiety disorder, unspecified (principal); I10 Essential (primary) hypertension; E11.9 Type 2 diabetes mellitus without complications; R62.50 Unspecified lack of expected normal physiological development in childhood; Z79.84 Long term (current) use of oral hypoglycemic drugs

== ENCOUNTER 2021-12-10 11:54 | Emergency (ER) | payer OTHER ==
[~2021-12-10] VITALS: Ht 144.8 cm; Wt 120.0 kg
[2021-12-10] MEDS ORDERED: PROAIR HFA108 MCG/AC (12:29)
[2021-12-10 12:55] LABS: URINE BILIRUBIN - DIPSTICK NEGATIVE (NEGATIVE); URINE BLOOD DIPSTICK NEGATIVE (NEGATIVE); URINE COLOR YELLOW; URINE GLUCOSE - DIPSTICK NEGATIVE (NEGATIVE); URINE KETONE NEGATIVE (NEGATIVE); URINE LEUK ESTERASE NEGATIVE (NEGATIVE); URINE PH 7.5 (4.5-8.0); URINE PROTEIN - DIPSTICK NEGATIVE (NEG-TRACE)
[2021-12-10 12:58] LABS: URINE NITRITE - DIPSTICK NEGATIVE (Negative)
[2021-12-10 13:13] LABS: HEMATOCRIT 37.8 % (37.0-47.0); HEMOGLOBIN 11.8 g/dl (12.0-16.0); IMMATURE GRANULOCYTES 0.3 % (0.0-5.0); MEAN CORPUSCULAR HGB 26.2 pG CALC (26.0-32.0); MEAN CORPUSCULAR HGB CONC 31.2 g/dL CAL (32.0-36.0); NEUT# 3.92 thou/uL (2.00-7.15); RED BLOOD COUNT 4.5 mill/uL (4.20-5.60); RED CELL DISTRI WIDTH 16.5 % (11.5-15.5)
[2021-12-10 13:47] LABS: ALBUMIN 3.9 g/dL (3.2-5.0); ALKALINE PHOSPHATASE 97 u/l (38-126); ANION GAP 11 (6-22 (CALC)); BILIRUBIN, TOTAL 0.4 mg/dL (0.0-1.4); BUN 12 mg/dL (7-17); BUN/CREATININE RATIO 15 (12-20 (CALC)); CARBON DIOXIDE 27 mmol/l (22-30); CHLORIDE 106 mmol/l (95-108); CREATININE 0.8 mg/dL (0.5-1.0); GFR > 60 ML/MIN (>=60 (CALC)); GFR FOR AFR.AMER. > 60 ML/MIN (>=60 (CALC)); LIPASE 64 u/l (23-300); POTASSIUM 3.7 mmol/l (3.5-5.1); SGOT/AST 27 u/l (14-36); SODIUM 141 mmol/l (137-146); TOTAL PROTEIN 7.4 g/dL (6.3-8.2)
[2021-12-10 16:15] VITALS: BP 143/99
== END 2021-12-10 16:54 | disposition home or self-care (01) ==
LOC: ED 11:54
PROVIDERS: Family Medicine
DX: R10.30 Lower abdominal pain, unspecified (principal); I10 Essential (primary) hypertension; E11.9 Type 2 diabetes mellitus without complications; R62.50 Unspecified lack of expected normal physiological development in childhood; E66.9 Obesity, unspecified; Z79.84 Long term (current) use of oral hypoglycemic drugs

== ENCOUNTER 2022-01-03 14:41 | Emergency (ER) | payer OTHER ==
[~2022-01-03] VITALS: Ht 144.8 cm; Wt 110.0 kg
[~2022-01-03 14:41] MED LIST changes: +PROAIR HFA108 MCG/AC
[2022-01-03 15:28] LABS: URINE BILIRUBIN - DIPSTICK NEGATIVE (NEGATIVE); URINE BLOOD DIPSTICK LARGE (NEGATIVE); URINE COLOR YELLOW; URINE GLUCOSE - DIPSTICK NEGATIVE (NEGATIVE); URINE KETONE TRACE mg/dL (NEGATIVE); URINE LEUK ESTERASE NEGATIVE (NEGATIVE); URINE PROTEIN - DIPSTICK NEGATIVE (NEG-TRACE); URINE SPECIFIC GRAVITY >=1.030; URINE UROBILINOGEN - DIPSTICK 0.2 E.U./dL (0.2)
[2022-01-03 15:28] LABS: HEMATOCRIT 35.2 % (37.0-47.0); HEMOGLOBIN 11.2 g/dl (12.0-16.0); IMMATURE GRANULOCYTES 0.2 % (0.0-5.0); MEAN CELL VOLUME 82.1 fL CALC (80.0-100.0); MEAN CORPUSCULAR HGB 26.1 pG CALC (26.0-32.0); MEAN CORPUSCULAR HGB CONC 31.8 g/dL CAL (32.0-36.0); NEUT# 4.22 thou/uL (2.00-7.15); RED BLOOD COUNT 4.29 mill/uL (4.20-5.60); RED CELL DISTRI WIDTH 16.4 % (11.5-15.5)
[2022-01-03 15:36] LABS: URINE NITRITE - DIPSTICK NEGATIVE (Negative)
[2022-01-03 15:38] LABS: URINE SQUAMOUS EPITHELIAL CELL FEW EPI/hpf (0-FEW); URINE WBC 0-2 WBC/hpf (0-5)
[2022-01-03 15:43] LABS: ALBUMIN 3.7 g/dL (3.2-5.0); ALKALINE PHOSPHATASE 78 u/l (38-126); ANION GAP 10 (6-22 (CALC)); BILIRUBIN, TOTAL 0.4 mg/dL (0.0-1.4); BUN 10 mg/dL (7-17); BUN/CREATININE RATIO 14 (12-20 (CALC)); CARBON DIOXIDE 27 mmol/l (22-30); CHLORIDE 107 mmol/l (95-108); CREATININE 0.7 mg/dL (0.5-1.0); GFR > 60 ML/MIN (>=60 (CALC)); GFR FOR AFR.AMER. > 60 ML/MIN (>=60 (CALC)); POTASSIUM 3.2 mmol/l (3.5-5.1); SGOT/AST 25 u/l (14-36); SODIUM 140 mmol/l (137-146); TOTAL PROTEIN 7.3 g/dL (6.3-8.2)
[2022-01-03] MEDS ORDERED: ULTRAM50 M1 PO (16:01)
[2022-01-03 16:15] VITALS: BP 138/74
== END 2022-01-03 16:27 | disposition home or self-care (01) ==
LOC: ED 14:41
PROVIDERS: Emergency Medicine
DX: R51.9 Headache, unspecified (principal); I10 Essential (primary) hypertension; E11.9 Type 2 diabetes mellitus without complications; R62.50 Unspecified lack of expected normal physiological development in childhood; T46.5X6A Underdosing of other antihypertensive drugs, initial encounter; Z91.128 Patient's intentional underdosing of medication regimen for other reason; Z63.8 Other specified problems related to primary support group; Z79.84 Long term (current) use of oral hypoglycemic drugs

== ENCOUNTER 2022-01-24 17:21 | Emergency (ER) | payer OTHER ==
[~2022-01-24] VITALS: Ht 144.8 cm; Wt 110.0 kg
[~2022-01-24 17:21] MED LIST changes: +ULTRAM50 M1 PO
[2022-01-24 17:51] LABS: HEMATOCRIT 34.6 % (37.0-47.0); HEMOGLOBIN 11.1 g/dl (12.0-16.0); IMMATURE GRANULOCYTES 0.1 % (0.0-5.0); MEAN CELL VOLUME 81.8 fL CALC (80.0-100.0); MEAN CORPUSCULAR HGB 26.2 pG CALC (26.0-32.0); MEAN CORPUSCULAR HGB CONC 32.1 g/dL CAL (32.0-36.0); NEUT# 4.57 thou/uL (2.00-7.15); RED BLOOD COUNT 4.23 mill/uL (4.20-5.60); RED CELL DISTRI WIDTH 17.1 % (11.5-15.5)
[2022-01-24 18:04] LABS: ALBUMIN 3.8 g/dL (3.2-5.0); ALKALINE PHOSPHATASE 96 u/l (38-126); ANION GAP 11 (6-22 (CALC)); BUN 13 mg/dL (7-17); BUN/CREATININE RATIO 17 (12-20 (CALC)); CARBON DIOXIDE 26 mmol/l (22-30); CHLORIDE 109 mmol/l (95-108); CREATININE 0.8 mg/dL (0.5-1.0); GFR > 60 ML/MIN (>=60 (CALC)); GFR FOR AFR.AMER. > 60 ML/MIN (>=60 (CALC)); POTASSIUM 3.4 mmol/l (3.5-5.1); SGOT/AST 24 u/l (14-36); SODIUM 142 mmol/l (137-146); TOTAL PROTEIN 7.3 g/dL (6.3-8.2)
[2022-01-24 18:05] LABS: BILIRUBIN, TOTAL 0.2 mg/dL (0.0-1.4)
[2022-01-24 18:27] VITALS: BP 119/79
[2022-01-24 18:41] VITALS: BP 119/79
== END 2022-01-24 18:46 | disposition home or self-care (01) ==
LOC: ED 17:21
PROVIDERS: Family Medicine
DX: R53.1 Weakness (principal); I10 Essential (primary) hypertension; E11.9 Type 2 diabetes mellitus without complications; E66.9 Obesity, unspecified; R62.50 Unspecified lack of expected normal physiological development in childhood; Z79.84 Long term (current) use of oral hypoglycemic drugs

== ENCOUNTER 2022-02-05 03:21 | Emergency (ER) | payer OTHER ==
[~2022-02-05] VITALS: Ht 144.8 cm; Wt 110.0 kg
[2022-02-05 03:55] LABS: HEMATOCRIT 35.4 % (37.0-47.0); HEMOGLOBIN 11.3 g/dl (12.0-16.0); IMMATURE GRANULOCYTES 0.1 % (0.0-5.0); MEAN CELL VOLUME 81.9 fL CALC (80.0-100.0); MEAN CORPUSCULAR HGB 26.2 pG CALC (26.0-32.0); MEAN CORPUSCULAR HGB CONC 31.9 g/dL CAL (32.0-36.0); NEUT# 6.34 thou/uL (2.00-7.15); RED BLOOD COUNT 4.32 mill/uL (4.20-5.60); RED CELL DISTRI WIDTH 17.1 % (11.5-15.5)
[2022-02-05 03:59] LABS: URINE BILIRUBIN - DIPSTICK NEGATIVE (NEGATIVE); URINE BLOOD DIPSTICK LARGE (NEGATIVE); URINE COLOR YELLOW; URINE GLUCOSE - DIPSTICK NEGATIVE (NEGATIVE); URINE KETONE NEGATIVE (NEGATIVE); URINE LEUK ESTERASE NEGATIVE (NEGATIVE); URINE PROTEIN - DIPSTICK TRACE mg/dL (NEG-TRACE); URINE SPECIFIC GRAVITY >=1.030; URINE UROBILINOGEN - DIPSTICK 0.2 E.U./dL (0.2)
[2022-02-05 04:05] LABS: URINE NITRITE - DIPSTICK NEGATIVE (Negative)
[2022-02-05 04:06] LABS: URINE BACTERIA FEW hpf; URINE MUCUS FEW hpf (NONE-FEW); URINE RBC 50-100 RBC/hpf (0-5); URINE SQUAMOUS EPITHELIAL CELL FEW EPI/hpf (0-FEW)
[2022-02-05 04:12] LABS: ALBUMIN 3.7 g/dL (3.2-5.0); ALKALINE PHOSPHATASE 125 u/l (38-126); AMYLASE 65 u/l (30-110); ANION GAP 11 (6-22 (CALC)); BILIRUBIN, TOTAL 0.3 mg/dL (0.0-1.4); BUN 13 mg/dL (7-17); BUN/CREATININE RATIO 16 (12-20 (CALC)); CARBON DIOXIDE 25 mmol/l (22-30); CHLORIDE 110 mmol/l (95-108); CREATININE 0.8 mg/dL (0.5-1.0); GFR > 60 ML/MIN (>=60 (CALC)); GFR FOR AFR.AMER. > 60 ML/MIN (>=60 (CALC)); LIPASE 143 u/l (23-300); POTASSIUM 3.7 mmol/l (3.5-5.1); SGOT/AST 25 u/l (14-36); SODIUM 142 mmol/l (137-146); TOTAL PROTEIN 6.8 g/dL (6.3-8.2)
[2022-02-05] MEDS ORDERED: PROMETHAZINE HY25 M1 PO (06:06)
[2022-02-05] MEDS ORDERED: IMODIUM2 MG PO (06:06)
[2022-02-05 06:20] VITALS: BP 107/77
== END 2022-02-05 06:25 | disposition home or self-care (01) ==
LOC: ED 03:21
PROVIDERS: Family Medicine
DX: A08.4 Viral intestinal infection, unspecified (principal); I10 Essential (primary) hypertension; E11.9 Type 2 diabetes mellitus without complications; R62.50 Unspecified lack of expected normal physiological development in childhood; Z79.84 Long term (current) use of oral hypoglycemic drugs; Z20.822 Contact with and (suspected) exposure to COVID-19

== ENCOUNTER 2022-03-09 20:43 | Emergency (ER) | payer OTHER ==
[~2022-03-09] VITALS: Ht 144.8 cm; Wt 103.1 kg
[2022-03-09] VITALS (8 sets, daily range): BP systolic 120–140; BP diastolic 79–93
[~2022-03-09 20:43] MED LIST changes: +IMODIUM2 MG PO
[2022-03-09 21:18] LABS: HEMATOCRIT 37.2 % (37.0-47.0); IMMATURE GRANULOCYTES 0.2 % (0.0-5.0); MEAN CORPUSCULAR HGB 26.1 pG CALC (26.0-32.0); MEAN CORPUSCULAR HGB CONC 32.3 g/dL CAL (32.0-36.0); NEUT# 5.25 thou/uL (2.00-7.15); RED BLOOD COUNT 4.59 mill/uL (4.20-5.60); RED CELL DISTRI WIDTH 16.6 % (11.5-15.5)
[2022-03-09 21:19] LABS: URINE BILIRUBIN - DIPSTICK NEGATIVE (NEGATIVE); URINE BLOOD DIPSTICK TRACE-INTACT (NEGATIVE); URINE COLOR YELLOW; URINE GLUCOSE - DIPSTICK NEGATIVE (NEGATIVE); URINE KETONE TRACE mg/dL (NEGATIVE); URINE PROTEIN - DIPSTICK NEGATIVE (NEG-TRACE); URINE SPECIFIC GRAVITY 1.015; URINE UROBILINOGEN - DIPSTICK 0.2 E.U./dL (0.2)
[2022-03-09 21:21] LABS: URINE LEUK ESTERASE MODERATE (NEGATIVE); URINE NITRITE - DIPSTICK NEGATIVE (Negative)
[2022-03-09 21:27] LABS: ALBUMIN 3.8 g/dL (3.2-5.0); ALKALINE PHOSPHATASE 137 u/l (38-126); AMYLASE 89 u/l (30-110); ANION GAP 14 (6-22 (CALC)); BUN 12 mg/dL (7-17); BUN/CREATININE RATIO 15 (12-20 (CALC)); CARBON DIOXIDE 27 mmol/l (22-30); CHLORIDE 105 mmol/l (95-108); CREATININE 0.8 mg/dL (0.5-1.0); GFR > 60 ML/MIN (>=60 (CALC)); GFR FOR AFR.AMER. > 60 ML/MIN (>=60 (CALC)); LIPASE 115 u/l (23-300); POTASSIUM 4.2 mmol/l (3.5-5.1); SGOT/AST 23 u/l (14-36); SODIUM 142 mmol/l (137-146); TOTAL PROTEIN 7.2 g/dL (6.3-8.2)
[2022-03-09 21:28] LABS: BILIRUBIN, TOTAL 0.1 mg/dL (0.0-1.4)
[2022-03-09 21:31] LABS: URINE SQUAMOUS EPITHELIAL CELL MODERATE EPI/hpf (0-FEW)
[2022-03-10] VITALS: BP 130/86
[2022-03-10] MEDS ORDERED: KEFLEX500 MG PO (00:06)
[2022-03-10 00:15] VITALS: BP 124/90
[2022-03-10 00:30] VITALS: BP 122/89
[2022-03-10 00:45] VITALS: BP 137/100
[2022-03-10] MEDS ORDERED: ULTRAM50 M1 PO (03:01)
[2022-03-10 08:28] VITALS: BP 137/100
== END 2022-03-10 08:28 | disposition home or self-care (01) ==
LOC: ED 20:43
PROVIDERS: Emergency Medicine
DX: N39.0 Urinary tract infection, site not specified (principal); E11.9 Type 2 diabetes mellitus without complications; I10 Essential (primary) hypertension; F41.9 Anxiety disorder, unspecified; F32.A Depression, unspecified; R62.50 Unspecified lack of expected normal physiological development in childhood; B96.4 Proteus (mirabilis) (morganii) as the cause of diseases classified elsewhere; Z79.84 Long term (current) use of oral hypoglycemic drugs
CPT/HCPCS: Q9967

== ENCOUNTER 2022-03-14 08:29 | Emergency (ER) | payer OTHER ==
[2022-03-14] VITALS (8 sets, daily range): BP systolic 53–140; BP diastolic 36–105
[~2022-03-14] VITALS: Ht 144.8 cm; Wt 81.8 kg
[~2022-03-14 08:29] MED LIST changes: +KEFLEX500 MG PO
[2022-03-14 09:47] LABS: HEMATOCRIT 40.1 % (37.0-47.0); HEMOGLOBIN 12.4 g/dl (12.0-16.0); IMMATURE GRANULOCYTES 0.1 % (0.0-5.0); MEAN CELL VOLUME 83.5 fL CALC (80.0-100.0); MEAN CORPUSCULAR HGB 25.8 pG CALC (26.0-32.0); MEAN CORPUSCULAR HGB CONC 30.9 g/dL CAL (32.0-36.0); NEUT# 7.39 thou/uL (2.00-7.15); RED BLOOD COUNT 4.8 mill/uL (4.20-5.60); RED CELL DISTRI WIDTH 16.7 % (11.5-15.5)
[2022-03-14 10:03] LABS: ACT PARTIAL THROMBO TIME 27.4 SECONDS (20.0-32.5); INTERNATIONAL NORMALIZED RATIO 0.9 RATIO (0.7-1.3); PROTHROMBIN TIME 9.8 SECONDS (9.0-12.5)
[2022-03-14 10:05] LABS: ALKALINE PHOSPHATASE 112 u/l (38-126); AMYLASE 88 u/l (30-110); ANION GAP 10 (6-22 (CALC)); BUN 12 mg/dL (7-17); BUN/CREATININE RATIO 17 (12-20 (CALC)); CARBON DIOXIDE 29 mmol/l (22-30); CHLORIDE 106 mmol/l (95-108); CREATININE 0.7 mg/dL (0.5-1.0); GFR FOR AFR.AMER. > 60 ML/MIN (>=60 (CALC)); GFR OTHER RACES > 60 ML/MIN (>=60 (CALC)); LIPASE 67 u/l (23-300); POTASSIUM 3.7 mmol/l (3.5-5.1); SGOT/AST 22 u/l (14-36); SODIUM 141 mmol/l (137-146); TOTAL PROTEIN 7.9 g/dL (6.3-8.2)
[2022-03-14 10:06] LABS: BILIRUBIN, TOTAL 0.3 mg/dL (0.0-1.4)
[2022-03-14] MEDS ORDERED: ULTRAM50 MG PO (12:24)
== END 2022-03-14 13:00 | disposition home or self-care (01) ==
LOC: ED 08:29
DX: S30.1XXA Contusion of abdominal wall, initial encounter (principal); S20.211A Contusion of right front wall of thorax, initial encounter; I10 Essential (primary) hypertension; E11.9 Type 2 diabetes mellitus without complications; R62.50 Unspecified lack of expected normal physiological development in childhood; F41.9 Anxiety disorder, unspecified; F32.A Depression, unspecified; W08.XXXA Fall from other furniture, initial encounter; Z79.84 Long term (current) use of oral hypoglycemic drugs
CPT/HCPCS: Q9967

== ENCOUNTER 2022-03-27 14:18 | Emergency (ER) | payer OTHER ==
[2022-03-27] VITALS (7 sets, daily range): BP systolic 139–152; BP diastolic 78–100
[~2022-03-27] VITALS: Ht 144.8 cm; Wt 107.5 kg
[~2022-03-27 14:18] MED LIST changes: +ULTRAM50 MG PO
[2022-03-27] MEDS ORDERED: TRAMADOL HCL50 MG PO (18:44)
== END 2022-03-27 18:59 | disposition home or self-care (01) ==
LOC: ED 14:18
DX: S43.015A Anterior dislocation of left humerus, initial encounter (principal); Y04.0XXA Assault by unarmed brawl or fight, initial encounter

== ENCOUNTER 2022-04-04 13:38 | Emergency (ER) | payer OTHER ==
[~2022-04-04] VITALS: Ht 144.8 cm; Wt 103.6 kg
[~2022-04-04 13:38] MED LIST changes: +TRAMADOL HCL50 MG PO
[2022-04-04 13:48] VITALS: BP 127/78
[2022-04-04 14:01] VITALS: BP 123/89
[2022-04-04 14:31] VITALS: BP 132/77
[2022-04-04 15:00] VITALS: BP 115/81
[2022-04-04] MEDS ORDERED: AMOXICILLIN500 M2 PO (15:14)
[2022-04-04] MEDS ORDERED: PREDNISONE50 MG PO (15:14)
[2022-04-04 15:30] VITALS: BP 122/81
[2022-04-04 15:32] VITALS: BP 122/81
== END 2022-04-04 15:30 | disposition home or self-care (01) ==
LOC: ED 13:38
DX: J06.9 Acute upper respiratory infection, unspecified (principal); I10 Essential (primary) hypertension; E11.9 Type 2 diabetes mellitus without complications; R62.50 Unspecified lack of expected normal physiological development in childhood; F41.9 Anxiety disorder, unspecified; F32.A Depression, unspecified; Z79.84 Long term (current) use of oral hypoglycemic drugs; Z20.822 Contact with and (suspected) exposure to COVID-19

== ENCOUNTER 2022-04-26 12:07 | Emergency (ER) | payer OTHER ==
[~2022-04-26] VITALS: Ht 144.8 cm; Wt 98.0 kg
[~2022-04-26 12:07] MED LIST changes: +AMOXICILLIN500 M2 PO; +PREDNISONE50 MG PO
[2022-04-26] MEDS ORDERED: AMOX/K CLAV875 M1 PO (13:42)
== END 2022-04-26 13:52 | disposition home or self-care (01) ==
LOC: ED 12:07
DX: U07.1 COVID-19 (principal); R09.89 Other specified symptoms and signs involving the circulatory and respiratory systems; R05.9 Cough, unspecified; R52 Pain, unspecified; H66.91 Otitis media, unspecified, right ear; E11.9 Type 2 diabetes mellitus without complications; I10 Essential (primary) hypertension; F41.9 Anxiety disorder, unspecified; F32.A Depression, unspecified; R62.50 Unspecified lack of expected normal physiological development in childhood; Z79.84 Long term (current) use of oral hypoglycemic drugs

== ENCOUNTER 2022-06-13 10:52 | Emergency (ER) | payer OTHER ==
[~2022-06-13] VITALS: Ht 144.8 cm; Wt 94.5 kg
[~2022-06-13 10:52] MED LIST changes: +AMOX/K CLAV875 M1 PO
[2022-06-13 11:21] LABS: HEMATOCRIT 37.1 % (37.0-47.0); IMMATURE GRANULOCYTES 0.2 % (0.0-5.0); MEAN CORPUSCULAR HGB 26.2 pG CALC (26.0-32.0); MEAN CORPUSCULAR HGB CONC 32.3 g/dL CAL (32.0-36.0); NEUT# 4.49 thou/uL (2.00-7.15); RED BLOOD COUNT 4.58 mill/uL (4.20-5.60); RED CELL DISTRI WIDTH 17.1 % (11.5-15.5)
[2022-06-13 11:32] LABS: ALBUMIN 4.1 g/dL (3.2-5.0); ALKALINE PHOSPHATASE 84 u/l (38-126); ANION GAP 12 (6-22 (CALC)); BILIRUBIN, TOTAL 0.4 mg/dL (0.0-1.4); BUN 12 mg/dL (7-17); BUN/CREATININE RATIO 16 (12-20 (CALC)); CARBON DIOXIDE 27 mmol/l (22-30); CHLORIDE 106 mmol/l (95-108); CREATININE 0.7 mg/dL (0.5-1.0); GFR FOR AFR.AMER. > 60 ML/MIN (>=60 (CALC)); GFR OTHER RACES > 60 ML/MIN (>=60 (CALC)); LIPASE 59 u/l (23-300); POTASSIUM 3.9 mmol/l (3.5-5.1); SGOT/AST 23 u/l (14-36); SODIUM 140 mmol/l (137-146); TOTAL PROTEIN 8.2 g/dL (6.3-8.2)
[2022-06-13 12:41] LABS: URINE BILIRUBIN - DIPSTICK NEGATIVE (NEGATIVE); URINE BLOOD DIPSTICK LARGE (NEGATIVE); URINE COLOR YELLOW; URINE GLUCOSE - DIPSTICK NEGATIVE (NEGATIVE); URINE KETONE 15 mg/dL (NEGATIVE); URINE PH 6.5 (4.5-8.0); URINE PROTEIN - DIPSTICK NEGATIVE (NEG-TRACE); URINE UROBILINOGEN - DIPSTICK 0.2 E.U./dL (0.2)
[2022-06-13 13:04] LABS: URINE LEUK ESTERASE SMALL (NEGATIVE); URINE NITRITE - DIPSTICK NEGATIVE (Negative)
[2022-06-13 13:08] LABS: URINE BACTERIA FEW hpf; URINE SQUAMOUS EPITHELIAL CELL MANY EPI/hpf (0-FEW)
[2022-06-13] MEDS ORDERED: KEFLEX500 MG PO (13:31)
[2022-06-13] MEDS ORDERED: MECLIZINE 2525 MG PO (13:31)
[2022-06-13 13:36] VITALS: BP 139/82
== END 2022-06-13 13:44 | disposition home or self-care (01) ==
LOC: ED 10:52
PROVIDERS: Family Medicine
DX: R42 Dizziness and giddiness (principal); H66.91 Otitis media, unspecified, right ear; N39.0 Urinary tract infection, site not specified; E11.9 Type 2 diabetes mellitus without complications; I10 Essential (primary) hypertension; R62.50 Unspecified lack of expected normal physiological development in childhood; F41.9 Anxiety disorder, unspecified; F32.A Depression, unspecified; Z79.84 Long term (current) use of oral hypoglycemic drugs; Z96.22 Myringotomy tube(s) status; Z20.822 Contact with and (suspected) exposure to COVID-19
CPT/HCPCS: Q9967

== ENCOUNTER 2022-06-18 06:46 | Emergency (ER) | payer OTHER ==
[2022-06-18] VITALS (7 sets, daily range): BP systolic 114–153; BP diastolic 80–112
[~2022-06-18] VITALS: Ht 144.8 cm; Wt 95.0 kg
[~2022-06-18 06:46] MED LIST changes: +MECLIZINE 2525 MG PO
[2022-06-18 08:07] LABS: HEMATOCRIT 37.4 % (37.0-47.0); IMMATURE GRANULOCYTES 0.2 % (0.0-5.0); MEAN CELL VOLUME 81.7 fL CALC (80.0-100.0); MEAN CORPUSCULAR HGB 26.2 pG CALC (26.0-32.0); MEAN CORPUSCULAR HGB CONC 32.1 g/dL CAL (32.0-36.0); NEUT# 4.42 thou/uL (2.00-7.15); RED BLOOD COUNT 4.58 mill/uL (4.20-5.60); RED CELL DISTRI WIDTH 16.7 % (11.5-15.5)
[2022-06-18 08:45] LABS: URINE BILIRUBIN - DIPSTICK NEGATIVE (NEGATIVE); URINE BLOOD DIPSTICK SMALL (NEGATIVE); URINE COLOR YELLOW; URINE GLUCOSE - DIPSTICK NEGATIVE (NEGATIVE); URINE KETONE NEGATIVE (NEGATIVE); URINE LEUK ESTERASE NEGATIVE (NEGATIVE); URINE NITRITE - DIPSTICK NEGATIVE (Negative); URINE PROTEIN - DIPSTICK NEGATIVE (NEG-TRACE); URINE SPECIFIC GRAVITY 1.015; URINE UROBILINOGEN - DIPSTICK 0.2 E.U./dL (0.2)
[2022-06-18] MEDS ORDERED: CLONIDINE0.1 MG PO (08:45)
[2022-06-18] MEDS ORDERED: LAMICTAL25 M2 PO (08:45)
[2022-06-18] MEDS ORDERED: MECLIZINE 2525 MG PO (08:45)
[2022-06-18 08:54] LABS: URINE BACTERIA FEW hpf; URINE SQUAMOUS EPITHELIAL CELL FEW EPI/hpf (0-FEW)
[2022-06-18 09:28] LABS: ALBUMIN 4.1 g/dL (3.2-5.0); ALKALINE PHOSPHATASE 91 u/l (38-126); ANION GAP 11 (6-22 (CALC)); BILIRUBIN, TOTAL 0.4 mg/dL (0.0-1.4); BUN 10 mg/dL (7-17); BUN/CREATININE RATIO 15 (12-20 (CALC)); CARBON DIOXIDE 28 mmol/l (22-30); CHLORIDE 106 mmol/l (95-108); CREATININE 0.7 mg/dL (0.5-1.0); GFR FOR AFR.AMER. > 60 ML/MIN (>=60 (CALC)); GFR OTHER RACES > 60 ML/MIN (>=60 (CALC)); LIPASE 82 u/l (23-300); SGOT/AST 22 u/l (14-36); SODIUM 141 mmol/l (137-146); TOTAL PROTEIN 7.7 g/dL (6.3-8.2)
== END 2022-06-18 10:29 | disposition home or self-care (01) ==
LOC: ED 06:46
PROVIDERS: Family Medicine
DX: R42 Dizziness and giddiness (principal)

== ENCOUNTER 2022-07-20 13:15 | Emergency (ER) | payer OTHER ==
[~2022-07-20] VITALS: Ht 144.8 cm; Wt 92.7 kg
[2022-07-20 13:30] VITALS: BP 153/100
[2022-07-20 13:46] VITALS: BP 125/82
[2022-07-20 13:48] LABS: HEMATOCRIT 32.9 % (37.0-47.0); HEMOGLOBIN 10.5 g/dl (12.0-16.0); IMMATURE GRANULOCYTES 0.1 % (0.0-5.0); MEAN CELL VOLUME 83.3 fL CALC (80.0-100.0); MEAN CORPUSCULAR HGB 26.6 pG CALC (26.0-32.0); MEAN CORPUSCULAR HGB CONC 31.9 g/dL CAL (32.0-36.0); NEUT# 5.81 thou/uL (2.00-7.15); RED BLOOD COUNT 3.95 mill/uL (4.20-5.60)
[2022-07-20 14:03] VITALS: BP 132/102
[2022-07-20 14:03] LABS: ALBUMIN 3.8 g/dL (3.2-5.0); ALKALINE PHOSPHATASE 67 u/l (38-126); ANION GAP 13 (6-22 (CALC)); BUN 14 mg/dL (7-17); BUN/CREATININE RATIO 21 (12-20 (CALC)); CARBON DIOXIDE 23 mmol/l (22-30); CHLORIDE 107 mmol/l (95-108); CREATININE 0.7 mg/dL (0.5-1.0); GFR FOR AFR.AMER. > 60 ML/MIN (>=60 (CALC)); GFR OTHER RACES > 60 ML/MIN (>=60 (CALC)); POTASSIUM 3.7 mmol/l (3.5-5.1); SODIUM 139 mmol/l (137-146); TOTAL PROTEIN 7.2 g/dL (6.3-8.2)
[2022-07-20 14:12] LABS: BILIRUBIN, TOTAL 0.2 mg/dL (0.0-1.4); SGOT/AST 27 u/l (14-36)
[2022-07-20 14:15] VITALS: BP 142/108
[2022-07-20 14:30] VITALS: BP 130/97
== END 2022-07-20 14:42 | disposition home or self-care (01) ==
LOC: ED 13:15
PROVIDERS: Family Medicine
DX: N92.0 Excessive and frequent menstruation with regular cycle (principal); E11.9 Type 2 diabetes mellitus without complications; I10 Essential (primary) hypertension; R62.50 Unspecified lack of expected normal physiological development in childhood; F41.9 Anxiety disorder, unspecified; F32.A Depression, unspecified; Z79.84 Long term (current) use of oral hypoglycemic drugs

== ENCOUNTER 2022-08-23 09:55 | Emergency (ER) | payer OTHER ==
[~2022-08-23] VITALS: Ht 144.8 cm; Wt 92.0 kg
[2022-08-23 10:53] VITALS: BP 143/94
[2022-08-23 11:01] VITALS: BP 122/76
[2022-08-23 11:25] LABS: HEMOGLOBIN 11.8 g/dl (12.0-16.0); IMMATURE GRANULOCYTES 0.2 % (0.0-5.0); MEAN CELL VOLUME 80.2 fL CALC (80.0-100.0); MEAN CORPUSCULAR HGB 26.3 pG CALC (26.0-32.0); MEAN CORPUSCULAR HGB CONC 32.8 g/dL CAL (32.0-36.0); NEUT# 2.65 thou/uL (2.00-7.15); RED BLOOD COUNT 4.49 mill/uL (4.20-5.60); RED CELL DISTRI WIDTH 15.5 % (11.5-15.5)
[2022-08-23 11:43] LABS: ALBUMIN 3.9 g/dL (3.2-5.0); ANION GAP 11 (6-22 (CALC)); BUN 9 mg/dL (7-17); BUN/CREATININE RATIO 14 (12-20 (CALC)); CARBON DIOXIDE 22 mmol/l (22-30); CHLORIDE 110 mmol/l (95-108); CREATININE 0.6 mg/dL (0.5-1.0); GFR FOR AFR.AMER. > 60 ML/MIN (>=60 (CALC)); GFR OTHER RACES > 60 ML/MIN (>=60 (CALC)); POTASSIUM 3.5 mmol/l (3.5-5.1); SGOT/AST 44 u/l (14-36); SODIUM 139 mmol/l (137-146); TOTAL PROTEIN 7.7 g/dL (6.3-8.2)
[2022-08-23 11:46] LABS: ALKALINE PHOSPHATASE 107 u/l (38-126); BILIRUBIN, TOTAL 0.4 mg/dL (0.0-1.4)
[2022-08-23] MEDS ORDERED: MOTRIN800 MG PO (12:43)
[2022-08-23] MEDS ORDERED: HYDROCO/APAP1 TA9 PO (12:43)
[2022-08-23 12:51] VITALS: BP 122/76
== END 2022-08-23 13:00 | disposition home or self-care (01) ==
LOC: ED 09:55
PROVIDERS: Emergency Medicine
DX: N93.8 Other specified abnormal uterine and vaginal bleeding (principal); E11.9 Type 2 diabetes mellitus without complications; I10 Essential (primary) hypertension; F41.9 Anxiety disorder, unspecified; F32.A Depression, unspecified; R62.50 Unspecified lack of expected normal physiological development in childhood; Z79.84 Long term (current) use of oral hypoglycemic drugs

== ENCOUNTER 2022-09-11 11:26 | Emergency (ER) | payer OTHER ==
[2022-09-11] VITALS (15 sets, daily range): BP systolic 53–146; BP diastolic 28–106
[~2022-09-11] VITALS: Ht 144.8 cm; Wt 92.2 kg
[~2022-09-11 11:26] MED LIST changes: +FIORICET PO; +HYDROCO/APAP1 TA9 PO; +LEVAQUIN750 M1 PO; +VIBRAMYCIN100 M2 PO
[2022-09-11 11:42] LABS: HEMATOCRIT 35.8 % (37.0-47.0); HEMOGLOBIN 11.4 g/dl (12.0-16.0); IMMATURE GRANULOCYTES 0.2 % (0.0-5.0); MEAN CELL VOLUME 80.8 fL CALC (80.0-100.0); MEAN CORPUSCULAR HGB 25.7 pG CALC (26.0-32.0); MEAN CORPUSCULAR HGB CONC 31.8 g/dL CAL (32.0-36.0); NEUT# 3.12 thou/uL (2.00-7.15); RED BLOOD COUNT 4.43 mill/uL (4.20-5.60); RED CELL DISTRI WIDTH 16.1 % (11.5-15.5)
[2022-09-11 12:01] LABS: ALBUMIN 4.1 g/dL (3.2-5.0); ALKALINE PHOSPHATASE 94 u/l (38-126); ANION GAP 9 (6-22 (CALC)); BILIRUBIN, TOTAL 0.2 mg/dL (0.0-1.4); BUN 13 mg/dL (7-17); BUN/CREATININE RATIO 17 (12-20 (CALC)); CARBON DIOXIDE 31 mmol/l (22-30); CHLORIDE 106 mmol/l (95-108); CREATININE 0.7 mg/dL (0.5-1.0); ETHYL ALCOHOL 0 mg/dl (0-30); GFR FOR AFR.AMER. > 60 ML/MIN (>=60 (CALC)); GFR OTHER RACES > 60 ML/MIN (>=60 (CALC)); LIPASE 107 u/l (23-300); POTASSIUM 3.7 mmol/l (3.5-5.1); SGOT/AST 26 u/l (14-36); SODIUM 142 mmol/l (137-146); TOTAL PROTEIN 7.6 g/dL (6.3-8.2)
[2022-09-11 15:03] LABS: URINE BILIRUBIN - DIPSTICK NEGATIVE (NEGATIVE); URINE BLOOD DIPSTICK NEGATIVE (NEGATIVE); URINE COLOR YELLOW; URINE GLUCOSE - DIPSTICK NEGATIVE (NEGATIVE); URINE KETONE NEGATIVE (NEGATIVE); URINE LEUK ESTERASE NEGATIVE (NEGATIVE); URINE PROTEIN - DIPSTICK NEGATIVE (NEG-TRACE); URINE SPECIFIC GRAVITY 1.015; URINE UROBILINOGEN - DIPSTICK 0.2 E.U./dL (0.2)
[2022-09-11 15:13] LABS: URINE NITRITE - DIPSTICK NEGATIVE (Negative)
== END 2022-09-11 19:13 | disposition short-term general hospital (02) ==
LOC: ED 11:26
PROVIDERS: Family Medicine
DX: H70.93 Unspecified mastoiditis, bilateral (principal); I10 Essential (primary) hypertension; E11.9 Type 2 diabetes mellitus without complications; F41.9 Anxiety disorder, unspecified; F32.A Depression, unspecified; J45.909 Unspecified asthma, uncomplicated; R62.50 Unspecified lack of expected normal physiological development in childhood; Z79.84 Long term (current) use of oral hypoglycemic drugs
CPT/HCPCS: J0692; Q9967

== ENCOUNTER 2022-09-30 23:11 | Emergency (ER) | payer OTHER ==
[~2022-09-30] VITALS: Ht 144.8 cm; Wt 92.3 kg
[2022-09-30 23:31] VITALS: BP 143/82
[2022-09-30] MEDS ORDERED: TRAMADOL HCL50 MG PO (23:35)
[2022-09-30 23:46] VITALS: BP 130/78
[2022-10-01 00:17] VITALS: BP 102/80
== END 2022-10-01 00:19 | disposition home or self-care (01) ==
LOC: ED 23:11
DX: R53.83 Other fatigue (principal); T50.915A Adverse effect of multiple unspecified drugs, medicaments and biological substances, initial encounter; H70.93 Unspecified mastoiditis, bilateral; I10 Essential (primary) hypertension; E11.9 Type 2 diabetes mellitus without complications; F41.9 Anxiety disorder, unspecified; F32.A Depression, unspecified; J45.909 Unspecified asthma, uncomplicated; R62.50 Unspecified lack of expected normal physiological development in childhood; Z79.84 Long term (current) use of oral hypoglycemic drugs

== ENCOUNTER 2022-10-31 19:06 | Emergency (ER) | payer OTHER ==
[~2022-10-31] VITALS: Ht 144.8 cm; Wt 88.0 kg
[2022-10-31] MEDS ORDERED: FIORICET PO (22:03)
[2022-10-31 22:08] VITALS: BP 137/92
[2022-10-31 22:15] VITALS: BP 124/92
[2022-10-31 22:30] VITALS: BP 130/87
[2022-10-31 22:45] VITALS: BP 143/97
[2022-10-31 23:01] VITALS: BP 149/85
[2022-11-01 00:40] VITALS: BP 147/80
== END 2022-11-01 00:40 | disposition home or self-care (01) ==
LOC: ED 19:06
DX: G43.909 Migraine, unspecified, not intractable, without status migrainosus (principal); I10 Essential (primary) hypertension; E11.9 Type 2 diabetes mellitus without complications; F41.9 Anxiety disorder, unspecified; F32.A Depression, unspecified; J45.909 Unspecified asthma, uncomplicated; R62.50 Unspecified lack of expected normal physiological development in childhood; Z79.84 Long term (current) use of oral hypoglycemic drugs

== ENCOUNTER 2022-11-19 15:50 | Emergency (ER) | payer OTHER ==
[2022-11-19] VITALS (18 sets, daily range): BP systolic 99–154; BP diastolic 65–100
[~2022-11-19] VITALS: Ht 144.8 cm; Wt 106.0 kg
[2022-11-19 17:37] LABS: BASO% 0.4 % (0-3); EOS% 1.6 % (0-8); HEMATOCRIT 35.5 % (37.0-47.0); LYMPH% 26.7 % (15-41); MEAN CELL VOLUME 81.1 fL CALC (80.0-100.0); MEAN CORPUSCULAR HGB 25.1 pG CALC (26.0-32.0); MONO% 6.3 % (2-13); NEUT# 4.41 thou/uL (2.00-7.15); RED BLOOD COUNT 4.38 mill/uL (4.20-5.60); RED CELL DISTRI WIDTH 17.7 % (11.5-15.5)
[2022-11-19 17:42] LABS: URINE BILIRUBIN - DIPSTICK NEGATIVE (NEGATIVE); URINE BLOOD DIPSTICK TRACE-INTACT (NEGATIVE); URINE COLOR YELLOW; URINE GLUCOSE - DIPSTICK NEGATIVE (NEGATIVE); URINE KETONE NEGATIVE (NEGATIVE); URINE LEUK ESTERASE NEGATIVE (NEGATIVE); URINE PROTEIN - DIPSTICK NEGATIVE (NEG-TRACE); URINE SPECIFIC GRAVITY >=1.030; URINE UROBILINOGEN - DIPSTICK 0.2 E.U./dL (0.2)
[2022-11-19 17:45] LABS: URINE NITRITE - DIPSTICK NEGATIVE (Negative)
[2022-11-19 18:05] LABS: ALBUMIN 4.1 g/dL (3.2-5.0); ALKALINE PHOSPHATASE 103 u/l (38-126); ANION GAP 9 (6-22 (CALC)); BUN 14 mg/dL (7-17); BUN/CREATININE RATIO 19 (12-20 (CALC)); CARBON DIOXIDE 27 mmol/l (22-30); CHLORIDE 110 mmol/l (95-108); CREATININE 0.7 mg/dL (0.5-1.0); GFR FOR AFR.AMER. > 60 ML/MIN (>=60 (CALC)); GFR OTHER RACES > 60 ML/MIN (>=60 (CALC)); POTASSIUM 4.4 mmol/l (3.5-5.1); SGOT/AST 44 u/l (14-36); SODIUM 142 mmol/l (137-146); TOTAL PROTEIN 7.5 g/dL (6.3-8.2)
[2022-11-19 18:06] LABS: BILIRUBIN, TOTAL 0.6 mg/dL (0.02-1.3)
== END 2022-11-19 20:29 | disposition home or self-care (01) ==
LOC: ED 15:50
PROVIDERS: Family Medicine
DX: R53.83 Other fatigue (principal); E11.9 Type 2 diabetes mellitus without complications; I10 Essential (primary) hypertension; F41.9 Anxiety disorder, unspecified; F32.A Depression, unspecified; J45.901 Unspecified asthma with (acute) exacerbation; R62.50 Unspecified lack of expected normal physiological development in childhood; Z79.84 Long term (current) use of oral hypoglycemic drugs

== ENCOUNTER 2022-11-23 17:26 | Emergency (ER) | payer OTHER ==
[~2022-11-23] VITALS: Ht 144.8 cm; Wt 92.0 kg
[2022-11-23] MEDS ORDERED: FIORICET PO (19:00)
[2022-11-23 19:15] VITALS: BP 150/105
== END 2022-11-23 19:23 | disposition home or self-care (01) ==
LOC: ED 17:26
DX: R51.9 Headache, unspecified (principal); I10 Essential (primary) hypertension; E11.9 Type 2 diabetes mellitus without complications; R62.50 Unspecified lack of expected normal physiological development in childhood; F41.9 Anxiety disorder, unspecified; F32.A Depression, unspecified; J45.909 Unspecified asthma, uncomplicated; Z79.84 Long term (current) use of oral hypoglycemic drugs

== ENCOUNTER 2022-12-09 08:43 | Emergency (ER) | payer OTHER ==
[~2022-12-09] VITALS: Ht 144.8 cm; Wt 75.0 kg
[2022-12-09] MEDS ORDERED: ZPAK PO (10:08)
[2022-12-09 10:30] VITALS: BP 142/96
[2022-12-09 10:46] VITALS: BP 134/93
[2022-12-09 11:00] VITALS: BP 152/95
== END 2022-12-09 11:00 | disposition home or self-care (01) ==
LOC: ED 08:43
DX: J06.9 Acute upper respiratory infection, unspecified (principal); I10 Essential (primary) hypertension; E11.9 Type 2 diabetes mellitus without complications; J45.909 Unspecified asthma, uncomplicated; F41.9 Anxiety disorder, unspecified; F32.A Depression, unspecified; R62.50 Unspecified lack of expected normal physiological development in childhood; Z79.84 Long term (current) use of oral hypoglycemic drugs; Z20.822 Contact with and (suspected) exposure to COVID-19

== ENCOUNTER 2022-12-16 10:08 | Emergency (ER) | payer OTHER ==
[2022-12-16] VITALS (7 sets, daily range): BP systolic 97–157; BP diastolic 55–87
[~2022-12-16] VITALS: Ht 144.8 cm; Wt 100.0 kg
[2022-12-16 14:18] LABS: BASO% 0.3 % (0-3); EOS% 2.1 % (0-8); HEMATOCRIT 36.9 % (37.0-47.0); HEMOGLOBIN 11.4 g/dl (12.0-16.0); IMMATURE GRANULOCYTES 0.2 % (0.0-5.0); LYMPH% 31.3 % (15-41); MEAN CELL VOLUME 81.5 fL CALC (80.0-100.0); MEAN CORPUSCULAR HGB 25.2 pG CALC (26.0-32.0); MEAN CORPUSCULAR HGB CONC 30.9 g/dL CAL (32.0-36.0); MONO% 7.3 % (2-13); NEUT# 3.87 thou/uL (2.00-7.15); NEUT% 58.8 % (42-76); RED BLOOD COUNT 4.53 mill/uL (4.20-5.60); RED CELL DISTRI WIDTH 17.1 % (11.5-15.5)
[2022-12-16 14:35] LABS: ALBUMIN 4.4 g/dL (3.2-5.0); ALKALINE PHOSPHATASE 129 u/l (38-126); ANION GAP 9 (6-22 (CALC)); BILIRUBIN, TOTAL 0.1 mg/dL (0.02-1.3); BUN 13 mg/dL (7-17); BUN/CREATININE RATIO 17 (12-20 (CALC)); CARBON DIOXIDE 29 mmol/l (22-30); CHLORIDE 105 mmol/l (95-108); CREATININE 0.7 mg/dL (0.5-1.0); GFR FOR AFR.AMER. > 60 ML/MIN (>=60 (CALC)); GFR OTHER RACES > 60 ML/MIN (>=60 (CALC)); POTASSIUM 3.5 mmol/l (3.5-5.1); SGOT/AST 27 u/l (14-36); SODIUM 139 mmol/l (137-146)
[2022-12-16] MEDS ORDERED: MECLIZINE 2525 MG PO (16:20)
[2022-12-16] MEDS ORDERED: MEDDOSEPAK PO (16:20)
== END 2022-12-16 17:10 | disposition home or self-care (01) ==
LOC: ED 10:08
PROVIDERS: Family Medicine
DX: R42 Dizziness and giddiness (principal); T85.628A Displacement of other specified internal prosthetic devices, implants and grafts, initial encounter; I10 Essential (primary) hypertension; E11.9 Type 2 diabetes mellitus without complications; F41.9 Anxiety disorder, unspecified; F32.A Depression, unspecified; J45.909 Unspecified asthma, uncomplicated; R62.50 Unspecified lack of expected normal physiological development in childhood; Y83.8 Other surgical procedures as the cause of abnormal reaction of the patient, or of later complication, without mention of misadventure at the time of the procedure; Z79.84 Long term (current) use of oral hypoglycemic drugs; Z96.22 Myringotomy tube(s) status

== ENCOUNTER 2022-12-26 20:00 | Emergency (ER) | payer OTHER ==
[2022-12-26] VITALS (10 sets, daily range): BP systolic 108–145; BP diastolic 63–101
[~2022-12-26] VITALS: Ht 144.8 cm; Wt 95.9 kg
[~2022-12-26 20:00] MED LIST changes: +MEDDOSEPAK PO
[2022-12-26 21:32] LABS: BASO% 0.5 % (0-3); EOS% 1.6 % (0-8); HEMOGLOBIN 10.6 g/dl (12.0-16.0); IMMATURE GRANULOCYTES 0.2 % (0.0-5.0); LYMPH% 29.3 % (15-41); MEAN CORPUSCULAR HGB 24.9 pG CALC (26.0-32.0); MEAN CORPUSCULAR HGB CONC 31.2 g/dL CAL (32.0-36.0); NEUT# 3.77 thou/uL (2.00-7.15); NEUT% 60.4 % (42-76); RED BLOOD COUNT 4.25 mill/uL (4.20-5.60); RED CELL DISTRI WIDTH 16.5 % (11.5-15.5)
[2022-12-26 21:44] LABS: ALBUMIN 4.1 g/dL (3.2-5.0); ALKALINE PHOSPHATASE 106 u/l (38-126); ANION GAP 11 (6-22 (CALC)); BUN 16 mg/dL (7-17); BUN/CREATININE RATIO 20 (12-20 (CALC)); CARBON DIOXIDE 28 mmol/l (22-30); CHLORIDE 106 mmol/l (95-108); CREATININE 0.8 mg/dL (0.5-1.0); GFR FOR AFR.AMER. > 60 ML/MIN (>=60 (CALC)); GFR OTHER RACES > 60 ML/MIN (>=60 (CALC)); POTASSIUM 3.5 mmol/l (3.5-5.1); SGOT/AST 25 u/l (14-36); SODIUM 141 mmol/l (137-146); TOTAL PROTEIN 7.5 g/dL (6.3-8.2)
[2022-12-26 21:45] LABS: BILIRUBIN, TOTAL 0.2 mg/dL (0.02-1.3)
[2022-12-26] MEDS ORDERED: FIORICET PO (22:33)
== END 2022-12-26 22:45 | disposition home or self-care (01) ==
LOC: ED 20:00
PROVIDERS: Emergency Medicine
DX: G43.909 Migraine, unspecified, not intractable, without status migrainosus (principal); I10 Essential (primary) hypertension; E11.9 Type 2 diabetes mellitus without complications; R62.50 Unspecified lack of expected normal physiological development in childhood; F41.9 Anxiety disorder, unspecified; F32.A Depression, unspecified; J45.909 Unspecified asthma, uncomplicated; Z79.84 Long term (current) use of oral hypoglycemic drugs; Z96.22 Myringotomy tube(s) status

== ENCOUNTER 2022-12-30 20:05 | Emergency (ER) | payer OTHER ==
[~2022-12-30] VITALS: Ht 144.8 cm; Wt 96.0 kg
[2022-12-30 20:10] VITALS: BP 134/118
[2022-12-30 20:16] VITALS: BP 110/84
[2022-12-30 20:30] VITALS: BP 126/85
[2022-12-30 20:54] LABS: BASO% 0.3 % (0-3); EOS% 2.1 % (0-8); HEMATOCRIT 34.7 % (37.0-47.0); HEMOGLOBIN 10.7 g/dl (12.0-16.0); IMMATURE GRANULOCYTES 0.1 % (0.0-5.0); LYMPH% 32.1 % (15-41); MEAN CELL VOLUME 81.5 fL CALC (80.0-100.0); MEAN CORPUSCULAR HGB 25.1 pG CALC (26.0-32.0); MEAN CORPUSCULAR HGB CONC 30.8 g/dL CAL (32.0-36.0); MONO% 7.7 % (2-13); NEUT# 4.34 thou/uL (2.00-7.15); NEUT% 57.7 % (42-76); RED BLOOD COUNT 4.26 mill/uL (4.20-5.60); RED CELL DISTRI WIDTH 16.7 % (11.5-15.5)
[2022-12-30 20:55] LABS: URINE BILIRUBIN - DIPSTICK NEGATIVE (NEGATIVE); URINE BLOOD DIPSTICK NEGATIVE (NEGATIVE); URINE COLOR YELLOW; URINE GLUCOSE - DIPSTICK NEGATIVE (NEGATIVE); URINE KETONE NEGATIVE (NEGATIVE); URINE LEUK ESTERASE NEGATIVE (NEGATIVE); URINE PROTEIN - DIPSTICK NEGATIVE (NEG-TRACE); URINE UROBILINOGEN - DIPSTICK 0.2 E.U./dL (0.2)
[2022-12-30 20:56] LABS: URINE NITRITE - DIPSTICK NEGATIVE (Negative)
[2022-12-30 21:06] LABS: ALBUMIN 3.9 g/dL (3.2-5.0); ALKALINE PHOSPHATASE 118 u/l (38-126); ANION GAP 10 (6-22 (CALC)); BUN 15 mg/dL (7-17); BUN/CREATININE RATIO 21 (12-20 (CALC)); CARBON DIOXIDE 25 mmol/l (22-30); CHLORIDE 108 mmol/l (95-108); CREATININE 0.7 mg/dL (0.5-1.0); GFR FOR AFR.AMER. > 60 ML/MIN (>=60 (CALC)); GFR OTHER RACES > 60 ML/MIN (>=60 (CALC)); SGOT/AST 30 u/l (14-36); SODIUM 139 mmol/l (137-146); TOTAL PROTEIN 7.1 g/dL (6.3-8.2)
[2022-12-30 21:07] LABS: BILIRUBIN, TOTAL 0.3 mg/dL (0.02-1.3)
[2022-12-30 21:29] VITALS: BP 126/85
== END 2022-12-30 22:00 | disposition home or self-care (01) ==
LOC: ED 20:05
PROVIDERS: Emergency Medicine
DX: R42 Dizziness and giddiness (principal); R53.1 Weakness; G43.909 Migraine, unspecified, not intractable, without status migrainosus; I10 Essential (primary) hypertension; E11.9 Type 2 diabetes mellitus without complications; F41.9 Anxiety disorder, unspecified; F32.A Depression, unspecified; J45.909 Unspecified asthma, uncomplicated; R62.50 Unspecified lack of expected normal physiological development in childhood; E66.9 Obesity, unspecified; Z79.84 Long term (current) use of oral hypoglycemic drugs

== ENCOUNTER 2023-01-01 14:58 | Emergency (ER) | payer OTHER ==
[~2023-01-01] VITALS: Ht 144.8 cm; Wt 95.7 kg
[2023-01-01 16:51] VITALS: BP 132/80
[2023-01-01 17:00] VITALS: BP 133/94
[2023-01-01 17:16] VITALS: BP 130/76
[2023-01-01 17:31] VITALS: BP 135/84
[2023-01-01 17:46] VITALS: BP 121/82
[2023-01-01 18:18] LABS: URINE BILIRUBIN - DIPSTICK NEGATIVE (NEGATIVE); URINE BLOOD DIPSTICK NEGATIVE (NEGATIVE); URINE COLOR YELLOW; URINE GLUCOSE - DIPSTICK NEGATIVE (NEGATIVE); URINE KETONE NEGATIVE (NEGATIVE); URINE LEUK ESTERASE NEGATIVE (NEGATIVE); URINE PROTEIN - DIPSTICK NEGATIVE (NEG-TRACE); URINE SPECIFIC GRAVITY 1.025; URINE UROBILINOGEN - DIPSTICK 0.2 E.U./dL (0.2)
[2023-01-01 18:20] LABS: URINE NITRITE - DIPSTICK NEGATIVE (Negative)
[2023-01-01 19:15] LABS: BASO% 0.2 % (0-3); EOS% 1.2 % (0-8); HEMATOCRIT 36.5 % (37.0-47.0); HEMOGLOBIN 11.1 g/dl (12.0-16.0); IMMATURE GRANULOCYTES 0.2 % (0.0-5.0); LYMPH% 24.7 % (15-41); MEAN CELL VOLUME 81.8 fL CALC (80.0-100.0); MEAN CORPUSCULAR HGB 24.9 pG CALC (26.0-32.0); MEAN CORPUSCULAR HGB CONC 30.4 g/dL CAL (32.0-36.0); MONO% 6.9 % (2-13); NEUT# 5.72 thou/uL (2.00-7.15); NEUT% 66.8 % (42-76); RED BLOOD COUNT 4.46 mill/uL (4.20-5.60); RED CELL DISTRI WIDTH 16.7 % (11.5-15.5)
[2023-01-01 19:24] LABS: ALKALINE PHOSPHATASE 121 u/l (38-126); ANION GAP 12 (6-22 (CALC)); BILIRUBIN, TOTAL 0.2 mg/dL (0.02-1.3); BUN 15 mg/dL (7-17); BUN/CREATININE RATIO 21 (12-20 (CALC)); CARBON DIOXIDE 23 mmol/l (22-30); CHLORIDE 106 mmol/l (95-108); CREATININE 0.7 mg/dL (0.5-1.0); GFR FOR AFR.AMER. > 60 ML/MIN (>=60 (CALC)); GFR OTHER RACES > 60 ML/MIN (>=60 (CALC)); LIPASE 105 u/l (23-300); POTASSIUM 3.8 mmol/l (3.5-5.1); SGOT/AST 30 u/l (14-36); SODIUM 137 mmol/l (137-146); TOTAL PROTEIN 7.6 g/dL (6.3-8.2)
[2023-01-01] MEDS ORDERED: MACROBID100 M1 PO (19:51)
[2023-01-01] MEDS ORDERED: ONDANSETRON4 MG PO (19:53)
[2023-01-01] MEDS ORDERED: PHENAZOPYRIDIN100 M1 PO (19:53)
[2023-01-01 20:04] VITALS: BP 121/82
== END 2023-01-01 20:11 | disposition home or self-care (01) ==
LOC: ED 14:58
PROVIDERS: Nurse Practitioner
DX: N39.0 Urinary tract infection, site not specified (principal); R42 Dizziness and giddiness; I10 Essential (primary) hypertension; E11.9 Type 2 diabetes mellitus without complications; F41.9 Anxiety disorder, unspecified; F32.A Depression, unspecified; J45.909 Unspecified asthma, uncomplicated; R62.50 Unspecified lack of expected normal physiological development in childhood; Z79.84 Long term (current) use of oral hypoglycemic drugs

== ENCOUNTER 2023-01-11 18:23 | Emergency (ER) | payer OTHER ==
[~2023-01-11] VITALS: Ht 144.8 cm; Wt 95.0 kg
[~2023-01-11 18:23] MED LIST changes: +MACROBID100 M1 PO; +PHENAZOPYRIDIN100 M1 PO
[2023-01-11 21:29] LABS: BASO% 0.4 % (0-3); EOS% 1.8 % (0-8); HEMATOCRIT 35.1 % (37.0-47.0); HEMOGLOBIN 10.9 g/dl (12.0-16.0); IMMATURE GRANULOCYTES 0.1 % (0.0-5.0); LYMPH% 31.2 % (15-41); MEAN CELL VOLUME 80.7 fL CALC (80.0-100.0); MEAN CORPUSCULAR HGB 25.1 pG CALC (26.0-32.0); MEAN CORPUSCULAR HGB CONC 31.1 g/dL CAL (32.0-36.0); MONO% 7.2 % (2-13); NEUT# 4.72 thou/uL (2.00-7.15); NEUT% 59.3 % (42-76); RED BLOOD COUNT 4.35 mill/uL (4.20-5.60); RED CELL DISTRI WIDTH 16.4 % (11.5-15.5)
[2023-01-11 21:40] LABS: ALBUMIN 4.2 g/dL (3.2-5.0); ALKALINE PHOSPHATASE 131 u/l (38-126); ANION GAP 9 (6-22 (CALC)); BUN 18 mg/dL (7-17); BUN/CREATININE RATIO 20 (12-20 (CALC)); CARBON DIOXIDE 30 mmol/l (22-30); CHLORIDE 105 mmol/l (95-108); CREATININE 0.9 mg/dL (0.5-1.0); GFR FOR AFR.AMER. > 60 ML/MIN (>=60 (CALC)); GFR OTHER RACES > 60 ML/MIN (>=60 (CALC)); POTASSIUM 3.7 mmol/l (3.5-5.1); SGOT/AST 27 u/l (14-36); SODIUM 140 mmol/l (137-146); TOTAL PROTEIN 7.7 g/dL (6.3-8.2)
[2023-01-11 21:53] LABS: URINE BILIRUBIN - DIPSTICK NEGATIVE (NEGATIVE); URINE BLOOD DIPSTICK MODERATE (NEGATIVE); URINE COLOR YELLOW; URINE GLUCOSE - DIPSTICK NEGATIVE (NEGATIVE); URINE KETONE NEGATIVE (NEGATIVE); URINE LEUK ESTERASE NEGATIVE (NEGATIVE); URINE PROTEIN - DIPSTICK NEGATIVE (NEG-TRACE); URINE SPECIFIC GRAVITY 1.015; URINE UROBILINOGEN - DIPSTICK 0.2 E.U./dL (0.2)
[2023-01-11 21:54] LABS: URINE NITRITE - DIPSTICK NEGATIVE (Negative)
[2023-01-11 22:00] LABS: URINE RBC 0-2 RBC/hpf (0-5); URINE SQUAMOUS EPITHELIAL CELL RARE EPI/hpf (0-FEW)
[2023-01-11 22:49] VITALS: BP 141/97
== END 2023-01-11 23:03 | disposition home or self-care (01) ==
LOC: ED 18:23
PROVIDERS: Emergency Medicine
DX: N93.9 Abnormal uterine and vaginal bleeding, unspecified (principal); I10 Essential (primary) hypertension; E11.9 Type 2 diabetes mellitus without complications; F41.9 Anxiety disorder, unspecified; F32.A Depression, unspecified; J45.909 Unspecified asthma, uncomplicated; R62.50 Unspecified lack of expected normal physiological development in childhood; Z79.84 Long term (current) use of oral hypoglycemic drugs

== ENCOUNTER 2023-01-13 19:19 | Emergency (ER) | payer OTHER ==
[~2023-01-13] VITALS: Ht 144.8 cm; Wt 98.4 kg
[2023-01-13 20:29] VITALS: BP 133/87
[2023-01-13 20:30] VITALS: BP 121/78
[2023-01-13 20:31] VITALS: BP 118/75
[2023-01-13 20:45] VITALS: BP 127/87
[2023-01-13 20:49] LABS: BASO% 0.3 % (0-3); EOS% 2.2 % (0-8); HEMATOCRIT 35.1 % (37.0-47.0); HEMOGLOBIN 10.7 g/dl (12.0-16.0); IMMATURE GRANULOCYTES 0.3 % (0.0-5.0); LYMPH% 31.2 % (15-41); MEAN CELL VOLUME 80.5 fL CALC (80.0-100.0); MEAN CORPUSCULAR HGB 24.5 pG CALC (26.0-32.0); MEAN CORPUSCULAR HGB CONC 30.5 g/dL CAL (32.0-36.0); MONO% 9.4 % (2-13); NEUT# 3.54 thou/uL (2.00-7.15); NEUT% 56.6 % (42-76); RED BLOOD COUNT 4.36 mill/uL (4.20-5.60); RED CELL DISTRI WIDTH 16.6 % (11.5-15.5)
[2023-01-13 20:53] LABS: URINE BILIRUBIN - DIPSTICK NEGATIVE (NEGATIVE); URINE BLOOD DIPSTICK SMALL (NEGATIVE); URINE COLOR YELLOW; URINE GLUCOSE - DIPSTICK NEGATIVE (NEGATIVE); URINE KETONE NEGATIVE (NEGATIVE); URINE LEUK ESTERASE NEGATIVE (NEGATIVE); URINE PH 6.5 (4.5-8.0); URINE PROTEIN - DIPSTICK NEGATIVE (NEG-TRACE); URINE SPECIFIC GRAVITY 1.025; URINE UROBILINOGEN - DIPSTICK 0.2 E.U./dL (0.2)
[2023-01-13 20:55] LABS: URINE NITRITE - DIPSTICK NEGATIVE (Negative)
[2023-01-13 20:57] LABS: ALBUMIN 4.1 g/dL (3.2-5.0); ALKALINE PHOSPHATASE 106 u/l (38-126); ANION GAP 10 (6-22 (CALC)); BUN 12 mg/dL (7-17); BUN/CREATININE RATIO 13 (12-20 (CALC)); CARBON DIOXIDE 26 mmol/l (22-30); CHLORIDE 106 mmol/l (95-108); CREATININE 0.9 mg/dL (0.5-1.0); GFR FOR AFR.AMER. > 60 ML/MIN (>=60 (CALC)); GFR OTHER RACES > 60 ML/MIN (>=60 (CALC)); MAGNESIUM 1.9 mg/dL (1.6-2.3); POTASSIUM 3.6 mmol/l (3.5-5.1); SGOT/AST 26 u/l (14-36); SODIUM 139 mmol/l (137-146); TOTAL PROTEIN 7.6 g/dL (6.3-8.2)
[2023-01-13 21:00] LABS: BILIRUBIN, TOTAL 0.3 mg/dL (0.02-1.3)
[2023-01-13 21:01] VITALS: BP 129/78
[2023-01-13 21:01] LABS: URINE SQUAMOUS EPITHELIAL CELL FEW EPI/hpf (0-FEW)
[2023-01-13 21:28] LABS: TSH, 3RD GENERATION 2.55 uIU/mL (0.47 - 4.68)
[2023-01-13 22:20] VITALS: BP 129/78
== END 2023-01-13 22:25 | disposition home or self-care (01) ==
LOC: ED 19:19
PROVIDERS: Family Medicine
DX: R42 Dizziness and giddiness (principal); R53.1 Weakness; I10 Essential (primary) hypertension; E11.9 Type 2 diabetes mellitus without complications; J45.909 Unspecified asthma, uncomplicated; F41.9 Anxiety disorder, unspecified; F32.A Depression, unspecified; R62.50 Unspecified lack of expected normal physiological development in childhood; Z79.84 Long term (current) use of oral hypoglycemic drugs; Z20.822 Contact with and (suspected) exposure to COVID-19

== ENCOUNTER 2023-01-27 08:33 | Emergency (ER) | payer OTHER ==
[2023-01-27] VITALS (13 sets, daily range): BP systolic 85–137; BP diastolic 62–97
[~2023-01-27] VITALS: Ht 144.8 cm; Wt 97.0 kg
== END 2023-01-27 12:32 | disposition home or self-care (01) ==
LOC: ED 08:33
DX: J06.9 Acute upper respiratory infection, unspecified (principal); I10 Essential (primary) hypertension; E11.9 Type 2 diabetes mellitus without complications; F41.9 Anxiety disorder, unspecified; F32.A Depression, unspecified; J45.909 Unspecified asthma, uncomplicated; R62.50 Unspecified lack of expected normal physiological development in childhood; Z20.822 Contact with and (suspected) exposure to COVID-19

== ENCOUNTER 2023-02-04 09:59 | Emergency (ER) | payer OTHER ==
[~2023-02-04] VITALS: Ht 144.8 cm; Wt 97.5 kg
[2023-02-04 10:07] VITALS: BP 134/84
[2023-02-04 10:16] VITALS: BP 122/59
[2023-02-04 10:32] VITALS: BP 121/82
[2023-02-04 11:30] LABS: BASO% 0.2 % (0-3); EOS% 1.3 % (0-8); HEMATOCRIT 36.5 % (37.0-47.0); HEMOGLOBIN 11.2 g/dl (12.0-16.0); MEAN CELL VOLUME 77.8 fL CALC (80.0-100.0); MEAN CORPUSCULAR HGB 23.9 pG CALC (26.0-32.0); MEAN CORPUSCULAR HGB CONC 30.7 g/dL CAL (32.0-36.0); NEUT# 1.63 thou/uL (2.00-7.15); NEUT% 35.9 % (42-76); RED BLOOD COUNT 4.69 mill/uL (4.20-5.60); RED CELL DISTRI WIDTH 16.2 % (11.5-15.5)
[2023-02-04 11:31] LABS: URINE BILIRUBIN - DIPSTICK NEGATIVE (NEGATIVE); URINE BLOOD DIPSTICK NEGATIVE (NEGATIVE); URINE COLOR YELLOW; URINE GLUCOSE - DIPSTICK NEGATIVE (NEGATIVE); URINE KETONE TRACE mg/dL (NEGATIVE); URINE LEUK ESTERASE NEGATIVE (NEGATIVE); URINE NITRITE - DIPSTICK NEGATIVE (Negative); URINE PROTEIN - DIPSTICK NEGATIVE (NEG-TRACE); URINE SPECIFIC GRAVITY <=1.005; URINE UROBILINOGEN - DIPSTICK 0.2 E.U./dL (0.2)
[2023-02-04 11:42] LABS: ALBUMIN 4.5 g/dL (3.2-5.0); ALKALINE PHOSPHATASE 91 u/l (38-126); ANION GAP 11 (6-22 (CALC)); BUN 12 mg/dL (7-17); BUN/CREATININE RATIO 16 (12-20 (CALC)); CARBON DIOXIDE 30 mmol/l (22-30); CHLORIDE 104 mmol/l (95-108); CREATININE 0.7 mg/dL (0.5-1.0); GFR FOR AFR.AMER. > 60 ML/MIN (>=60 (CALC)); GFR OTHER RACES > 60 ML/MIN (>=60 (CALC)); POTASSIUM 3.5 mmol/l (3.5-5.1); SODIUM 142 mmol/l (137-146); TOTAL PROTEIN 7.8 g/dL (6.3-8.2)
[2023-02-04 11:45] LABS: BILIRUBIN, TOTAL 0.6 mg/dL (0.02-1.3); SGOT/AST 54 u/l (14-36)
[2023-02-04 11:52] LABS: LYMPH% 53.6 % (15-41)
[2023-02-04] MEDS ORDERED: CARAFATE1 GM PO (14:10)
[2023-02-04] MEDS ORDERED: PROTONIX40 M2 PO (14:10)
[2023-02-04 14:33] VITALS: BP 89/67
[2023-02-04 14:37] VITALS: BP 89/67
[2023-02-07] MEDS ORDERED: KETOROLAC10 MG PO (11:34)
[2023-02-07] MEDS ORDERED: QULIPTA30 MG PO (11:34)
[2023-02-07] MEDS ORDERED: MAXALT10 MG PO (11:35)
[2023-02-07] MEDS ORDERED: [UNRECOGNIZED DRUG - OTHER] (11:35)
[2023-02-07] MEDS ORDERED: MAGNESIUM OXID420 MG PO (11:35)
[2023-02-07] MEDS ORDERED: B2 PO (11:35)
[2023-02-07] MEDS ORDERED: GABAPENTIN100 MG PO (11:36)
[2023-02-07] MEDS ORDERED: COMPAZINE10 MG PO (11:36)
[2023-02-07] MEDS ORDERED: METHOCARBAMOL500 MG PO (11:36)
[2023-02-07] MEDS ORDERED: ONDANSETRON4 MG PO (11:37)
[2023-02-07] MEDS ORDERED: PAIN RELIEF325 MG PO (11:37)
[2023-02-07] MEDS ORDERED: FOLIC ACID1 M1 PO (11:37)
[2023-02-07] MEDS ORDERED: D3400 UNI2 PO (11:38)
[2023-02-07] MEDS ORDERED: CARAFATE1 GM PO (16:49)
[2023-02-07] MEDS ORDERED: PROTONIX40 M2 PO (16:49)
== END 2023-02-04 14:45 | disposition home or self-care (01) ==
LOC: ED 09:59
PROVIDERS: Family Medicine
DX: R10.13 Epigastric pain (principal); I10 Essential (primary) hypertension; E11.9 Type 2 diabetes mellitus without complications; J45.909 Unspecified asthma, uncomplicated; F41.9 Anxiety disorder, unspecified; F32.A Depression, unspecified; R62.50 Unspecified lack of expected normal physiological development in childhood; Z79.84 Long term (current) use of oral hypoglycemic drugs
CPT/HCPCS: S0164

== ENCOUNTER 2023-02-20 08:09 | Day surgery (SDC) | payer OTHER ==
[~2023-02-20] VITALS: Ht 144.8 cm; Wt 97.5 kg
[~2023-02-20 08:09] MED LIST changes: +B2 PO; +CARAFATE1 GM PO; +COMPAZINE10 MG PO; +D3400 UNI2 PO; +FOLIC ACID1 M1 PO; +GABAPENTIN100 MG PO; +KETOROLAC10 MG PO; +MAGNESIUM OXID420 MG PO; +MAXALT10 MG PO; +METHOCARBAMOL500 MG PO; +PAIN RELIEF325 MG PO; +PROTONIX40 M2 PO; +QULIPTA30 MG PO; +[UNRECOGNIZED DRUG - OTHER]
[2023-02-20 14:49] VITALS: BP 129/90
[2023-02-25] MEDS ORDERED: CLARITHROMYCIN500 MG PO (10:07)
[2023-02-25] MEDS ORDERED: AMOXICILLIN500 MG PO (10:07)
== END 2023-02-20 14:30 | disposition home or self-care (01) ==
LOC: ENDO 08:09 → ORM 09:35 → ENDO 10:40 → ORM 11:45 → ENDO 14:30
PROVIDERS: ATTEND Surgery
DX: K29.50 Unspecified chronic gastritis without bleeding (principal); B96.81 Helicobacter pylori [H. pylori] as the cause of diseases classified elsewhere; K29.80 Duodenitis without bleeding; I10 Essential (primary) hypertension; E11.9 Type 2 diabetes mellitus without complications; F31.9 Bipolar disorder, unspecified; F41.9 Anxiety disorder, unspecified; Z79.84 Long term (current) use of oral hypoglycemic drugs; Z90.49 Acquired absence of other specified parts of digestive tract
CPT/HCPCS: J0131

== ENCOUNTER 2023-03-14 11:09 | Emergency (ER) | payer OTHER ==
[2023-03-14] VITALS (7 sets, daily range): BP systolic 117–140; BP diastolic 83–96
[~2023-03-14] VITALS: Ht 144.8 cm; Wt 98.0 kg
[~2023-03-14 11:09] MED LIST changes: +CLARITHROMYCIN500 MG PO
[2023-03-14 15:02] LABS: URINE BILIRUBIN - DIPSTICK NEGATIVE (NEGATIVE); URINE BLOOD DIPSTICK NEGATIVE (NEGATIVE); URINE COLOR YELLOW; URINE GLUCOSE - DIPSTICK NEGATIVE (NEGATIVE); URINE KETONE TRACE mg/dL (NEGATIVE); URINE LEUK ESTERASE NEGATIVE (NEGATIVE); URINE NITRITE - DIPSTICK NEGATIVE (Negative); URINE PH 6.5 (4.5-8.0); URINE PROTEIN - DIPSTICK NEGATIVE (NEG-TRACE); URINE UROBILINOGEN - DIPSTICK 0.2 E.U./dL (0.2)
[2023-03-14 16:28] LABS: BASO% 0.4 % (0-3); EOS% 1.6 % (0-8); HEMATOCRIT 37.8 % (37.0-47.0); HEMOGLOBIN 11.4 g/dl (12.0-16.0); IMMATURE GRANULOCYTES 0.2 % (0.0-5.0); LYMPH% 42.9 % (15-41); MEAN CELL VOLUME 78.8 fL CALC (80.0-100.0); MEAN CORPUSCULAR HGB 23.8 pG CALC (26.0-32.0); MEAN CORPUSCULAR HGB CONC 30.2 g/dL CAL (32.0-36.0); MONO% 6.9 % (2-13); NEUT# 2.7 thou/uL (2.00-7.15); RED BLOOD COUNT 4.8 mill/uL (4.20-5.60); RED CELL DISTRI WIDTH 17.1 % (11.5-15.5)
[2023-03-14 16:54] LABS: ALBUMIN 4.5 g/dL (3.2-5.0); ALKALINE PHOSPHATASE 135 u/l (38-126); AMYLASE 95 u/l (30-110); ANION GAP 9 (6-22 (CALC)); BILIRUBIN, TOTAL 0.7 mg/dL (0.02-1.3); BUN 10 mg/dL (7-17); BUN/CREATININE RATIO 14 (12-20 (CALC)); CARBON DIOXIDE 29 mmol/l (22-30); CHLORIDE 105 mmol/l (95-108); CREATININE 0.7 mg/dL (0.5-1.0); GFR FOR AFR.AMER. > 60 ML/MIN (>=60 (CALC)); GFR OTHER RACES > 60 ML/MIN (>=60 (CALC)); LIPASE 110 u/l (23-300); POTASSIUM 4.3 mmol/l (3.5-5.1); SGOT/AST 58 u/l (14-36); SODIUM 139 mmol/l (137-146); TOTAL PROTEIN 8.5 g/dL (6.3-8.2)
== END 2023-03-14 19:05 | disposition home or self-care (01) ==
LOC: ED 11:09
PROVIDERS: Family Medicine
DX: K83.8 Other specified diseases of biliary tract (principal); I10 Essential (primary) hypertension; E11.9 Type 2 diabetes mellitus without complications; F41.9 Anxiety disorder, unspecified; F32.A Depression, unspecified; J45.909 Unspecified asthma, uncomplicated; R62.50 Unspecified lack of expected normal physiological development in childhood; Z79.84 Long term (current) use of oral hypoglycemic drugs

== ENCOUNTER 2023-04-15 19:34 | Emergency (ER) | payer OTHER ==
[~2023-04-15] VITALS: Ht 144.8 cm; Wt 75.0 kg
[2023-04-15 21:45] VITALS: BP 128/89
[2023-04-15 22:00] VITALS: BP 112/84
[2023-04-15 22:02] VITALS: BP 112/84
== END 2023-04-15 22:08 | disposition home or self-care (01) ==
LOC: ED 19:34
DX: S09.90XA Unspecified injury of head, initial encounter (principal); I10 Essential (primary) hypertension; E11.9 Type 2 diabetes mellitus without complications; G89.29 Other chronic pain; F41.9 Anxiety disorder, unspecified; F32.A Depression, unspecified; J45.909 Unspecified asthma, uncomplicated; R62.50 Unspecified lack of expected normal physiological development in childhood; W20.8XXA Other cause of strike by thrown, projected or falling object, initial encounter; Z79.84 Long term (current) use of oral hypoglycemic drugs

== ENCOUNTER 2023-04-20 02:04 | Emergency (ER) | payer OTHER ==
[~2023-04-20] VITALS: Ht 144.8 cm; Wt 100.0 kg
[2023-04-20] MEDS ORDERED: SULFACET SOD10 % OU (02:43)
[2023-04-20] MEDS ORDERED: CLARITIN10 M1 PO (02:43)
[2023-04-20 03:00] VITALS: BP 130/87
[2023-04-20 03:15] VITALS: BP 128/80
[2023-04-20 03:30] VITALS: BP 135/94
[2023-04-20 03:42] VITALS: BP 135/94
== END 2023-04-20 03:20 | disposition home or self-care (01) ==
LOC: ED 02:04
DX: H10.9 Unspecified conjunctivitis (principal); I10 Essential (primary) hypertension; E11.9 Type 2 diabetes mellitus without complications; F41.9 Anxiety disorder, unspecified; F32.A Depression, unspecified; J45.909 Unspecified asthma, uncomplicated; R62.50 Unspecified lack of expected normal physiological development in childhood; Z79.84 Long term (current) use of oral hypoglycemic drugs; Z20.822 Contact with and (suspected) exposure to COVID-19

== ENCOUNTER 2023-10-11 14:52 | Emergency (ER) | payer OTHER ==
[~2023-10-11] VITALS: Ht 144.8 cm; Wt 98.0 kg
[~2023-10-11 14:52] MED LIST changes: +DOXY-CAPS100 MG PO; +METRONIDAZOLE500 MG PO; +PEPTO-BISM262 MG/15 PO; +SULFACET SOD10 % OU
[2023-10-11 15:28] VITALS: BP 134/94
== END 2023-10-11 16:19 | disposition left against medical advice (07) | DRG 951 ==
LOC: ED 14:52 → LWOBS 16:19
DX: Z53.21 Procedure and treatment not carried out due to patient leaving prior to being seen by health care provider (principal)

== ENCOUNTER 2023-10-13 16:35 | Emergency (ER) | payer OTHER ==
[~2023-10-13] VITALS: Ht 144.8 cm; Wt 97.0 kg
[2023-10-13 17:19] VITALS: BP 121/85
[2023-10-13 17:30] VITALS: BP 135/92
[2023-10-13 18:01] VITALS: BP 136/95
[2023-10-13 18:18] LABS: BASO% 0.3 % (0-3); EOS% 1.6 % (0-8); HEMATOCRIT 37.4 % (37.0-47.0); HEMOGLOBIN 11.6 g/dl (12.0-16.0); IMMATURE GRANULOCYTES 0.1 % (0.0-5.0); LYMPH% 31.6 % (15-41); MEAN CELL VOLUME 81.5 fL CALC (80.0-100.0); MEAN CORPUSCULAR HGB 25.3 pG CALC (26.0-32.0); NEUT# 4.67 thou/uL (2.00-7.15); NEUT% 61.4 % (42-76); RED BLOOD COUNT 4.59 mill/uL (4.20-5.60)
[2023-10-13 18:19] LABS: URINE BILIRUBIN - DIPSTICK Negative (NEGATIVE); URINE BLOOD DIPSTICK Moderate (NEGATIVE); URINE GLUCOSE - DIPSTICK Negative (NEGATIVE); URINE KETONE Negative (NEGATIVE); URINE LEUK ESTERASE Negative (NEGATIVE); URINE NITRITE - DIPSTICK Negative (Negative); URINE PH 6.5 (4.5-8.0); URINE PROTEIN - DIPSTICK 30 mg/dL (NEG-TRACE); URINE SPECIFIC GRAVITY >=1.030
[2023-10-13 18:21] LABS: URINE COLOR Yellow
[2023-10-13 18:30] LABS: URINE SQUAMOUS EPITHELIAL CELL MANY EPI/hpf (0-FEW)
[2023-10-13 18:33] LABS: ALBUMIN 4.3 g/dL (3.2-5.0); ALKALINE PHOSPHATASE 88 u/l (38-126); ANION GAP 13 (6-22 (CALC)); BUN 17 mg/dL (7-17); BUN/CREATININE RATIO 20 (12-20 (CALC)); CARBON DIOXIDE 25 mmol/l (22-30); CHLORIDE 106 mmol/l (95-108); CREATININE 0.9 mg/dL (0.5-1.0); GFR FOR AFR.AMER. > 60 ML/MIN (>=60 (CALC)); GFR OTHER RACES > 60 ML/MIN (>=60 (CALC)); LIPASE 99 u/l (23-300); POTASSIUM 3.4 mmol/l (3.5-5.1); SGOT/AST 27 u/l (14-36); SODIUM 141 mmol/l (137-146); TOTAL PROTEIN 7.6 g/dL (6.3-8.2)
[2023-10-13 18:41] LABS: BILIRUBIN, TOTAL 0.3 mg/dL (0.02-1.3)
[2023-10-13 20:11] VITALS: BP 156/100
[2023-10-13] MEDS ORDERED: FIORICET PO (20:23)
[2023-10-13 20:31] VITALS: BP 165/95
[2023-10-13 20:49] VITALS: BP 165/95
== END 2023-10-13 21:06 | disposition home or self-care (01) ==
LOC: ED 16:35
PROVIDERS: Nurse Practitioner
DX: G43.909 Migraine, unspecified, not intractable, without status migrainosus (principal); I10 Essential (primary) hypertension; E11.9 Type 2 diabetes mellitus without complications; F41.9 Anxiety disorder, unspecified; F32.A Depression, unspecified; J45.909 Unspecified asthma, uncomplicated; R62.50 Unspecified lack of expected normal physiological development in childhood; Z79.84 Long term (current) use of oral hypoglycemic drugs

== ENCOUNTER 2023-10-26 19:57 | Emergency (ER) | payer OTHER ==
[~2023-10-26] VITALS: Ht 144.8 cm; Wt 102.0 kg
[2023-10-26 20:18] VITALS: BP 131/87
[2023-10-26 21:22] VITALS: BP 131/87
== END 2023-10-26 21:26 | disposition home or self-care (01) ==
LOC: ED 19:57
DX: L70.0 Acne vulgaris (principal); I10 Essential (primary) hypertension; E11.9 Type 2 diabetes mellitus without complications; F41.9 Anxiety disorder, unspecified; F32.A Depression, unspecified; J45.909 Unspecified asthma, uncomplicated; R62.50 Unspecified lack of expected normal physiological development in childhood; Z79.84 Long term (current) use of oral hypoglycemic drugs

== ENCOUNTER 2023-11-06 02:41 | Emergency (ER) | payer OTHER ==
[~2023-11-06] VITALS: Ht 144.8 cm; Wt 99.0 kg
[2023-11-06 03:00] VITALS: BP 129/87
[2023-11-06] MEDS ORDERED: VISTARIL25 MG PO (04:35)
== END 2023-11-06 06:05 | disposition home or self-care (01) ==
LOC: ED 02:41
DX: S20.161A Insect bite (nonvenomous) of breast, right breast, initial encounter (principal); S40.862A Insect bite (nonvenomous) of left upper arm, initial encounter; S20.469A Insect bite (nonvenomous) of unspecified back wall of thorax, initial encounter; I10 Essential (primary) hypertension; E11.9 Type 2 diabetes mellitus without complications; F41.9 Anxiety disorder, unspecified; F32.A Depression, unspecified; J45.909 Unspecified asthma, uncomplicated; W57.XXXA Bitten or stung by nonvenomous insect and other nonvenomous arthropods, initial encounter; R62.50 Unspecified lack of expected normal physiological development in childhood; Z79.84 Long term (current) use of oral hypoglycemic drugs

== ENCOUNTER 2023-11-30 19:16 | Emergency (ER) | payer OTHER ==
[~2023-11-30] VITALS: Ht 144.8 cm; Wt 99.7 kg
[~2023-11-30 19:16] MED LIST changes: +VISTARIL25 MG PO
[2023-11-30] MEDS ORDERED: guaiFENesin-CODEINE 200-20 MG/10 ML UDC PO ONE (19:50)
[2023-11-30 20:11] LABS: BASO% 0.4 % (0-3); HEMATOCRIT 37.6 % (37.0-47.0); HEMOGLOBIN 11.8 g/dl (12.0-16.0); IMMATURE GRANULOCYTES 0.2 % (0.0-5.0); LYMPH% 18.7 % (15-41); MEAN CORPUSCULAR HGB 25.1 pG CALC (26.0-32.0); MEAN CORPUSCULAR HGB CONC 31.4 g/dL CAL (32.0-36.0); MONO% 10.3 % (2-13); NEUT# 3.74 thou/uL (2.00-7.15); NEUT% 68.4 % (42-76); RED BLOOD COUNT 4.7 mill/uL (4.20-5.60); RED CELL DISTRI WIDTH 17.4 % (11.5-15.5)
[2023-11-30] MEDS ORDERED: PAXLOVID PO (20:35)
[2023-11-30 21:13] VITALS: BP 134/89
== END 2023-11-30 21:13 | disposition home or self-care (01) ==
LOC: ED 19:16
PROVIDERS: Family Medicine
DX: U07.1 COVID-19 (principal); R09.81 Nasal congestion; R05.9 Cough, unspecified; R50.9 Fever, unspecified; R19.7 Diarrhea, unspecified; R52 Pain, unspecified; I10 Essential (primary) hypertension; E11.9 Type 2 diabetes mellitus without complications; F41.9 Anxiety disorder, unspecified; F32.A Depression, unspecified; J45.909 Unspecified asthma, uncomplicated; R62.50 Unspecified lack of expected normal physiological development in childhood; Z79.84 Long term (current) use of oral hypoglycemic drugs

== ENCOUNTER 2024-05-08 17:13 | Emergency (ER) | payer OTHER ==
[~2024-05-08 17:13] MED LIST changes: +PAXLOVID PO
[2024-05-09] MEDS ORDERED: CEPHALEXIN500 M1 PO (14:42)
== END 2024-05-08 17:21 | disposition home or self-care (01) | DRG 951 ==
LOC: ED 17:13 → LWOBS 17:21
DX: Z53.21 Procedure and treatment not carried out due to patient leaving prior to being seen by health care provider (principal)

== ENCOUNTER 2024-05-09 14:19 | Emergency (ER) | payer OTHER ==
[~2024-05-09] VITALS: Ht 144.8 cm; Wt 102.0 kg
[2024-05-09 14:35] VITALS: BP 147/97
[2024-05-09] MEDS ORDERED: CEPHALEXIN500 M1 PO (14:42)
[2024-05-09 14:46] VITALS: BP 126/85
[2024-05-09 15:00] VITALS: BP 125/89
[2024-05-09 15:15] VITALS: BP 119/87
[2024-05-09 15:31] VITALS: BP 110/82
[2024-05-09 15:38] VITALS: BP 110/82
== END 2024-05-09 15:38 | disposition home or self-care (01) ==
LOC: ED 14:19
DX: L98.9 Disorder of the skin and subcutaneous tissue, unspecified (principal); I10 Essential (primary) hypertension; E11.9 Type 2 diabetes mellitus without complications; F41.9 Anxiety disorder, unspecified; F32.A Depression, unspecified; J45.909 Unspecified asthma, uncomplicated; R62.50 Unspecified lack of expected normal physiological development in childhood; Z79.84 Long term (current) use of oral hypoglycemic drugs

== ENCOUNTER 2024-07-01 13:11 | Emergency (ER) | payer OTHER ==
[~2024-07-01] VITALS: Ht 144.8 cm; Wt 116.0 kg
[2024-07-01] VITALS (10 sets, daily range): BP systolic 110–136; BP diastolic 76–103
[2024-07-01] MEDS ORDERED: FEMARA2.5 MG PO (14:22)
[2024-07-01 14:56] LABS: BASO% 0.4 % (0-3); EOS% 0.9 % (0-8); HEMATOCRIT 38.3 % (37.0-47.0); HEMOGLOBIN 12.1 g/dl (12.0-16.0); IMMATURE GRANULOCYTES 0.1 % (0.0-5.0); LYMPH% 30.1 % (15-41); MEAN CELL VOLUME 79.5 fL CALC (80.0-100.0); MEAN CORPUSCULAR HGB 25.1 pG CALC (26.0-32.0); MEAN CORPUSCULAR HGB CONC 31.6 g/dL CAL (32.0-36.0); MONO% 5.4 % (2-13); NEUT# 4.81 thou/uL (2.00-7.15); NEUT% 63.1 % (42-76); RED BLOOD COUNT 4.82 mill/uL (4.20-5.60); RED CELL DISTRI WIDTH 17.9 % (11.5-15.5)
[2024-07-01 15:09] LABS: ALBUMIN 4.3 g/dL (3.2-5.0); ALKALINE PHOSPHATASE 88 u/l (38-126); BUN 14 mg/dL (7-17); BUN/CREATININE RATIO 15 (12-20 (CALC)); CARBON DIOXIDE 27 mmol/l (22-30); CHLORIDE 111 mmol/l (95-108); CREATININE 0.9 mg/dL (0.5-1.0); ESTIMATED GFR 91 ML/MIN (>=90 (CALC)); SGOT/AST 34 u/l (14-36); SODIUM 141 mmol/l (137-146)
[2024-07-01 15:12] LABS: ANION GAP 7 (6-22 (CALC)); BILIRUBIN, TOTAL 0.5 mg/dL (0.02-1.3); POTASSIUM 4.1 mmol/l (3.5-5.1)
[2024-07-01] MEDS ORDERED: ACETAMINOPHEN 325 MG/TAB PO ONE (15:40)
[2024-07-01] MEDS ORDERED: IBUPROFEN 600 MG/TAB PO ONE (15:40)
== END 2024-07-01 16:07 | disposition home or self-care (01) ==
LOC: ED 13:11
PROVIDERS: Nurse Practitioner Acute Care
DX: R51.9 Headache, unspecified (principal); F41.9 Anxiety disorder, unspecified; F31.9 Bipolar disorder, unspecified; I10 Essential (primary) hypertension; E11.9 Type 2 diabetes mellitus without complications; J45.909 Unspecified asthma, uncomplicated; R62.50 Unspecified lack of expected normal physiological development in childhood; Z79.84 Long term (current) use of oral hypoglycemic drugs

== ENCOUNTER 2024-09-06 12:42 | Emergency (ER) | payer OTHER ==
[~2024-09-06] VITALS: Ht 144.8 cm; Wt 113.0 kg
[2024-09-06] VITALS (8 sets, daily range): BP systolic 124–146; BP diastolic 83–99
[~2024-09-06 12:42] MED LIST changes: +CEFDINIR300 MG PO; +FEMARA2.5 MG PO
[2024-09-06] MEDS ORDERED: DiphenhydrAMINE HCL 50 MG/ML SDV IV ONE (13:20)
[2024-09-06] MEDS ORDERED: SODIUM CHLORIDE 0.9% 1,000 ML IV ONE (13:20)
[2024-09-06] MEDS ORDERED: KETOROLAC TROMETHAMINE 30 MG/ML SDV IV ONE (13:20)
[2024-09-06] MEDS ORDERED: METOCLOPRAMIDE HCL 10 MG/2 ML SDV IV ONE (13:20)
[2024-09-06 13:23] LABS: BASO% 0.3 % (0-3); EOS% 2.2 % (0-8); HEMATOCRIT 37.3 % (37.0-47.0); HEMOGLOBIN 11.7 g/dl (12.0-16.0); IMMATURE GRANULOCYTES 0.2 % (0.0-5.0); LYMPH% 36.5 % (15-41); MEAN CELL VOLUME 81.4 fL CALC (80.0-100.0); MEAN CORPUSCULAR HGB 25.5 pG CALC (26.0-32.0); MEAN CORPUSCULAR HGB CONC 31.4 g/dL CAL (32.0-36.0); MONO% 6.6 % (2-13); NEUT# 3.52 thou/uL (2.00-7.15); NEUT% 54.2 % (42-76); RED BLOOD COUNT 4.58 mill/uL (4.20-5.60); RED CELL DISTRI WIDTH 17.4 % (11.5-15.5)
[2024-09-06 13:30] LABS: ALBUMIN 4.1 g/dL (3.2-5.0); BILIRUBIN, TOTAL 0.4 mg/dL (0.02-1.3); CREATININE 0.7 mg/dL (0.5-1.0); POTASSIUM 3.5 mmol/l (3.5-5.1); TOTAL PROTEIN 7.6 g/dL (6.3-8.2)
[2024-09-06 13:54] LABS: URINE BILIRUBIN - DIPSTICK Negative (NEGATIVE); URINE BLOOD DIPSTICK Negative (NEGATIVE); URINE GLUCOSE - DIPSTICK Negative (NEGATIVE); URINE KETONE Negative (NEGATIVE); URINE LEUK ESTERASE Negative (NEGATIVE); URINE NITRITE - DIPSTICK Negative (Negative); URINE PROTEIN - DIPSTICK Negative (NEG-TRACE); URINE UROBILINOGEN - DIPSTICK 0.2 E.U./dL (0.2)
[2024-09-06 13:56] LABS: URINE COLOR Yellow
[2024-09-06] MEDS ORDERED: DEXAMETHASONE SOD. PHOSPHATE 10 MG/ML VIAL IV ONE (14:25)
== END 2024-09-06 15:16 | disposition home or self-care (01) ==
LOC: ED 12:42
PROVIDERS: Nurse Practitioner
DX: G43.909 Migraine, unspecified, not intractable, without status migrainosus (principal); I10 Essential (primary) hypertension; E11.9 Type 2 diabetes mellitus without complications; F41.9 Anxiety disorder, unspecified; F32.A Depression, unspecified; J45.909 Unspecified asthma, uncomplicated; R62.50 Unspecified lack of expected normal physiological development in childhood; Z79.84 Long term (current) use of oral hypoglycemic drugs

== ENCOUNTER 2024-09-09 12:59 | Emergency (ER) | payer OTHER ==
[~2024-09-09] VITALS: Ht 144.8 cm; Wt 113.0 kg
[2024-09-09] MEDS ORDERED: SODIUM CHLORIDE 0.9% 1,000 ML IV ONE (13:20)
[2024-09-09] MEDS ORDERED: ONDANSETRON HCl 4 MG/2 ML SDV IV ONE ×2 (13:20→17:35)
[2024-09-09] MEDS ORDERED: ISOVUE-300 (Iopamidol) 100 ML SDV IV ONE (14:45)
[2024-09-09] MEDS ORDERED: KETOROLAC TROMETHAMINE 30 MG/ML SDV IV ONE (15:00)
[2024-09-09 15:30] LABS: URINE BLOOD DIPSTICK Negative (NEGATIVE); URINE GLUCOSE - DIPSTICK Negative (NEGATIVE); URINE KETONE Negative (NEGATIVE); URINE LEUK ESTERASE Negative (NEGATIVE); URINE NITRITE - DIPSTICK Negative (Negative); URINE PH 6.5 (4.5-8.0); URINE PROTEIN - DIPSTICK Negative (NEG-TRACE); URINE SPECIFIC GRAVITY 1.025
[2024-09-09 15:30] LABS: BASO% 0.2 % (0-3); HEMATOCRIT 35.5 % (37.0-47.0); HEMOGLOBIN 11.1 g/dl (12.0-16.0); IMMATURE GRANULOCYTES 0.2 % (0.0-5.0); LYMPH% 33.8 % (15-41); MEAN CELL VOLUME 80.1 fL CALC (80.0-100.0); MEAN CORPUSCULAR HGB 25.1 pG CALC (26.0-32.0); MEAN CORPUSCULAR HGB CONC 31.3 g/dL CAL (32.0-36.0); MONO% 13.3 % (2-13); NEUT# 3.11 thou/uL (2.00-7.15); NEUT% 51.5 % (42-76); RED BLOOD COUNT 4.43 mill/uL (4.20-5.60)
[2024-09-09] MEDS ORDERED: MORPHINE SULFATE 4 MG/ML VIAL IV ONE (15:30)
[2024-09-09 15:31] LABS: URINE COLOR Yellow
[2024-09-09 15:46] LABS: ALBUMIN 3.7 g/dL (3.2-5.0); CREATININE 0.8 mg/dL (0.5-1.0); POTASSIUM 3.7 mmol/l (3.5-5.1); TOTAL PROTEIN 6.8 g/dL (6.3-8.2)
[2024-09-09 15:47] LABS: BILIRUBIN, TOTAL 0.6 mg/dL (0.02-1.3)
[2024-09-09] MEDS ORDERED: Pantoprazole Sodium 40 MG VIAL (Protonix) IV ONE (17:40)
[2024-09-09 18:09] VITALS: BP 136/83
== END 2024-09-09 18:11 | disposition home or self-care (01) ==
LOC: ED 12:59
PROVIDERS: Family Medicine
DX: R10.13 Epigastric pain (principal); I10 Essential (primary) hypertension; E11.9 Type 2 diabetes mellitus without complications; F41.9 Anxiety disorder, unspecified; F32.A Depression, unspecified; J45.909 Unspecified asthma, uncomplicated; R62.50 Unspecified lack of expected normal physiological development in childhood; Z79.84 Long term (current) use of oral hypoglycemic drugs
CPT/HCPCS: J2470; Q9967

== ENCOUNTER 2024-12-18 08:43 | Emergency (ER) | payer OTHER ==
[~2024-12-18] VITALS: Ht 144.8 cm; Wt 111.0 kg
[2024-12-18 09:04] VITALS: BP 133/101
[2024-12-18] MEDS ORDERED: IBUPROFEN 200 MG/TAB PO ONE (09:20)
[2024-12-18 09:31] VITALS: BP 144/80
[2024-12-18 09:50] VITALS: BP 144/80
== END 2024-12-18 09:50 | disposition home or self-care (01) ==
LOC: ED 08:43
DX: J02.9 Acute pharyngitis, unspecified (principal); I10 Essential (primary) hypertension; E11.9 Type 2 diabetes mellitus without complications; R62.50 Unspecified lack of expected normal physiological development in childhood; J45.909 Unspecified asthma, uncomplicated; F32.A Depression, unspecified; F41.9 Anxiety disorder, unspecified; Z79.84 Long term (current) use of oral hypoglycemic drugs; Z20.822 Contact with and (suspected) exposure to COVID-19

== ENCOUNTER 2024-12-29 20:26 | Emergency (ER) | payer OTHER ==
[~2024-12-29] VITALS: Ht 144.8 cm; Wt 112.0 kg
[2024-12-29 21:16] VITALS: BP 121/80
[2024-12-29] MEDS ORDERED: KETOROLAC TROMETHAMINE 30 MG/ML SDV IM ONE (21:30)
[2024-12-29 21:31] VITALS: BP 118/83
[2024-12-29] MEDS ORDERED: EXCEDRIN PO (21:42)
[2024-12-29] MEDS ORDERED: MECLIZINE25 M1 PO (21:42)
[2024-12-29 22:00] VITALS: BP 133/95
[2024-12-29 22:01] VITALS: BP 133/95
== END 2024-12-29 22:05 | disposition home or self-care (01) ==
LOC: ED 20:26
DX: G43.909 Migraine, unspecified, not intractable, without status migrainosus (principal); I10 Essential (primary) hypertension; E11.9 Type 2 diabetes mellitus without complications; J45.909 Unspecified asthma, uncomplicated; F41.9 Anxiety disorder, unspecified; F32.A Depression, unspecified; R62.50 Unspecified lack of expected normal physiological development in childhood; Z79.84 Long term (current) use of oral hypoglycemic drugs